=== PATIENT | female | born 1940 | race Caucasian/White ===

== ENCOUNTER 2016-06-16 18:58 | Inpatient (IN) | payer MEDICARE, MEDICAID ==
[2016-06-16 20:20] LABS: % EOSINOPHILS 2.9 % (0.0-5.0)
[2016-06-16 20:23] LABS: ALB/GLOB RATIO 1.1 (1.0-1.8); ALKALINE PHOSPHATASE 111 U/L (34-104); ANION GAP 6.1 (7.0-16.0); BILIRUBIN,TOTAL 0.4 mg/dL (0.3-1.0); BUN - UREA NITROGEN 24 mg/dL (7-25); CALCIUM SERUM 9.6 mg/dL (8.6-10.3); CHLORIDE 100 mEq/L (98-107); CHOLESTEROL 147 mg/dL (<200); CREATININE - SERUM 0.5 mg/dL (0.6-1.2); GLUCOSE 108 mg/dL (70-105); POTASSIUM SERUM 4.1 mEq/L (3.5-5.1); SGOT 20 U/L (13-39); SGPT/ALT 8 U/L (7-52); SODIUM SERUM 130 mEq/L (136-145); TRIGLYCERIDES 91 mg/dL (<150)
[2016-06-16 20:32] LABS: % BASOPHILS 0.4 % (0.0-2.0); % LYMPHOCYTES 21.1 % (20.0-50.0); % MONOCYTES 7.2 % (2.0-10.0); % NEUTROPHILS 68.4 % (40.0-80.0); HEMOGLOBIN 11.7 gm/dL (11.7-16.1); MEAN CELL VOLUME 80.1 fl (81-100); MEAN CORPUSCULAR HEMOGLOBIN 26.7 pg (27.0-31.0); MEAN CORPUSCULAR HGB CONC 33.4 pg (28.0-36.0); MEAN PLATELET VOLUME 10.2 fl; NEUTROPHILE ABSOLUTE 4.3 Th/cmm (1.8-8.0); RED BLOOD COUNT 4.37 Mil/cmm (3.80-5.20); RED CELL DISTRIBUTION WIDTH 13.5 % (11.5-20.0); WHITE BLOOD COUNT 6.4 Th/cmm (4.8-10.8)
[2016-06-16 20:39] LABS: INR 1.05 (0.5-1.4); PROTHROMBIN TIME (TEST) 10.4 SECONDS (9.5-11.5)
[2016-06-16 20:39] LABS: PLATELET COUNT 177 Th/cmm (150-400)
--- NOTE | 2016-06-16 22:18 | ED Physician Chart ---
Chief Complaint/HPI - Patient Information Date Seen:: 06/16/16 Time Seen:: 20:59 Chief Complaint:: AGITATION History of Present Illness:: THIS IS A 75 YO PSYCH FEMALE PATIENT SENT FROM THE DETENTION FOR EVALUATION AND TREATMENT OF HER PSYCHOSIS. SHE HAS REFUSED TO TAKE HER MEDICATIONS AND SCREENING CONSTANTLY. THE PATIENT HAS BEEN UNCOOPERATIVE WITH THE STAFF. Allergies:: Allergies Allergy/AdvReac Type Severity Reaction Status Date / Time No Known Allergies Allergy Verified 06/16/16 20:02 Vitals:: Vital Signs - 8 hr 06/16/16 20:11 Temp 97.3 F HR 112 RR 20 BP 158/98 O2 Sat % 96 Historian:: EMS, Medical Records Review:: Nurse's Note Reviewed Review of Systems - Review of Systems General/Constitutional: No fever, No chills, No weight loss, No weakness, No diaphoresis, No edema, No loss of appetite, Other (THIS PATIENT IS UNCOOPERATIVE AND NOT ABLE TO GIVE THE REVIEW OF SYSTEMS.) Skin: No skin lesions, No rash, No bruising Head: No headache, No light-headedness Eyes: No loss of vision, No pain, No diplopia ENT: No earache, No nasal drainage, No sore throat, No tinnitus Neck: No neck pain, No swelling, No thyromegaly, No stiffness, No mass noted Cardio Vascular: No chest pain, No palpitations, No PND, No orthopnea, No edema Pulmonary: No SOB, No cough, No sputum, No wheezing GI: No nausea, No vomiting, No diarrhea, No pain, No melena, No hematochezia, No constipation, No hematemesis G/U: No dysuria, No frequency, No hematuria Musculoskeletal: No bone or joint pain, No back pain, No muscle pain Endocrine: No polyuria, No polydipsia Psychiatric: No prior psych history, No depression, No anxiety, No suicidal ideation Hematopoietic: No bruising, No lymphadenopathy Allergic/Immuno: No urticaria, No angioedema Neurological: No syncope, No focal symptoms, No weakness, No paresthesia, No headache, No seizure, No dizziness, No confusion, No vertigo Past Medical History - Past Medical History Obtainable: Yes Past Medical History: Asthma/COPD, Thyroid disorder, Dementia Family History: None Social History: Non Smoker, No Alcohol, No Drug Use Surgical History: None Psychiatricy History: Schizophrenia, Dementia Medication: Reviewed Family Medical History - Family Member Mother History Unknown: Yes Physical Exam - Physical Examination General/Constitutional: Awake, Well-developed, well-nourished, Alert, No distress, GCS 15, Non-toxic appearing, Ambulatory Other Gen/Cons comments:: SCREAMING AND FIGHTING TREATMENT Head: Atraumatic Eyes: Lids, conjuctiva normal, PERRL, EOMI Skin: Nl inspection, No rash, No skin lesions, No ecchymosis, Well hydrated, No lymphadenopathy ENMT: External ears, nose nl, Nasal exam nl, Lips, teeth, gums nl Neck: Nontender, Full ROM w/o pain, No JVD, No nuchal rigidity, No bruit, No mass, No stridor Respiratory: Nl effort/Exclusion, Clear to Auscultation, No Wheeze/Rhonchi/Rales Cardio Vascular: RRR, No murmur, gallop, rubs, NL S1 S2 GI: No tenderness/rebounding/guarding, No organomegaly, No hernia, Normal BS's, Nondistended, No mass/bruits, No McBurney tenderness : No CVA tenderness Extremities: No tenderness or effusion, Full ROM, normal strength in all extremities, No edema, Normal digits & nails Neuro/Psych: Alert/oriented, DTR's symmetric, Normal sensory exam, Normal motor strength, Normal gait, No focal deficits Other Neuro/Psych comments:: THE PATIENT IS NOT COOPERATIVE AND ORIENTATION CANNOT DONE AT THIS TIME. Misc: normal gait, Normal back, No paraspinal tenderness Labs/Radiology/EKG Results - Lab Results Results: Laboratory Tests 06/16/16 06/16/16 06/16/16 19:42 19:42 19:42 WBC RBC Hgb Hct MCV MCH MCHC Differential RDW Plt Count MPV Neutrophils % Lymphocytes % Monocytes % Eosinophils % Basophils % PT 10.4 INR 1.05 Sodium 130 L Potassium 4.1 Chloride 100 Carbon Dioxide 28.0 Anion Gap 6.1 L BUN 24 Creatinine 0.5 L Est GFR ( Amer) TNP Est GFR (Non-Af Amer) TNP BUN/Creatinine Ratio 48.0 Glucose 108 H Calcium 9.6 Total Bilirubin 0.4 AST 20 ALT 8 Alkaline Phosphatase 111 H Troponin I Total Protein 7.2 Albumin 3.7 Globulin 3.5 Albumin/Globulin Ratio 1.1 Triglycerides 91 Cholesterol 147 LDL Cholesterol Direct 66 L HDL Cholesterol 66 TSH 06/16/16 06/16/16 06/16/16 19:42 19:42 20:29 WBC 6.4 RBC 4.37 Hgb 11.7 Hct 35.0 D MCV 80.1 L MCH 26.7 L MCHC Differential 33.4 RDW 13.5 Plt Count 177 D MPV 10.2 Neutrophils % 68.4 Lymphocytes % 21.1 Monocytes % 7.2 Eosinophils % 2.9 Basophils % 0.4 PT INR Sodium Potassium Chloride Carbon Dioxide Anion Gap BUN Creatinine Est GFR ( Amer) Est GFR (Non-Af Amer) BUN/Creatinine Ratio Glucose Calcium Total Bilirubin AST ALT Alkaline Phosphatase Troponin I < 0.01 L Total Protein Albumin Globulin Albumin/Globulin Ratio Triglycerides Cholesterol LDL Cholesterol Direct HDL Cholesterol TSH 4.43 - Radiology Results Results: CHEST X-RAY = NAD SEEN ED Septic Shock - . Is Septic Shock (SBP<90, OR Lactate>4 mmol\L) present?: No - <6hrs of presentation: Vital Signs: Vital Signs - 8 hr 06/16/16 20:11 Temp 97.3 F HR 112 RR 20 BP 158/98 O2 Sat % 96 Reassessment (Disposition) - Reassessment Reassessment Condition:: Unchanged - Diagnosis Diagnosis:: PSYCHOSIS DEPRESSION - Patient Disposition Discharge/Transfer:: Acute Care w/in this hosp Admitting Medical Physician:: Johan Gaytan Admitting Psych Physician:: Christina Monroe Condition at Disposition:: Unchanged
[2016-06-16] MEDS ORDERED: Maalox 30 mL Cup PO PRN (23:40)
[2016-06-16] MEDS ORDERED: Lactulose 10 Gm/15 mL 30mL UDC PO PRN (23:40)
[2016-06-16] MEDS ORDERED: Magnesium Hydroxide (MOM) 30 mL UDC PO PRN (23:40)
[2016-06-16 23:41] VITALS: BP 112/70
[2016-06-17] MEDS: Levothyroxine 0.1 Mg Tab PO SCH (05:54)
[2016-06-17] MEDS ORDERED: Levothyroxine 0.1 Mg Tab PO SCH ×2 (06:30→09:00)
[2016-06-17] MEDS: Multivitamin Tab PO SCH ×2 (09:25→17:32)
[2016-06-17] MEDS: Calcium Carb/Vit D 500 mg/200 U Tab PO SCH ×3 (09:27→21:09)
--- NOTE | 2016-06-17 10:38 | Diagnostic Imaging Report ---
Portable chest x-ray History: Shortness of breath Allowing for portable technique the heart size is normal. Atherosclerotic calcification seen within the aortic arch. No focal pulmonary parenchymal processes. No hilar or mediastinal abnormalities. Impression: No acute abnormalities.
--- NOTE | 2016-06-17 23:44 | History & Physical ---
CHIEF COMPLAINT: The patient was transferred from [facility] for psych eval and treatment. HISTORY OF PRESENT ILLNESS: This is a 75-year-old female who has a known history of schizophrenia. The patient has been under care of her psychiatrist Dr. Monroe and the patient has been paranoid from time to time. She is getting very agitated and screaming and refusing care, and her symptoms have been progressively getting worse for the last few days, therefore she was transferred to [facility] ER for medical clearance and [facility] admission. When the patient was in the Emergency Room, she had chest x-ray and laboratory done and she was medically cleared and she was admitted to [facility] for further evaluation treatment. At the time of interview, the patient is still psychotic and not able to answering questions or following command properly. She is still refusing her medication and she does not appreciate to be in any acute distress. She is sitting on the wheelchair. PAST MEDICAL HISTORY: 1. Asthma. 2. Left leg skin ulcer disease, which developed after she had injury with large hematoma. 3. Hypothyroidism. 4. Degenerative joint disease involving bilateral knees, wheelchair bound condition. PAST SURGICAL HISTORY: 1. ORIF hip fracture. 2. Left leg ulcer wound debridement and skin graft. SOCIAL HISTORY: The patient is a smoker. She still smokes a few cigarettes a day at [facility]. She does not drink. She is wheelchair bound because of her osteoarthritis. ALLERGIES: No known allergies to medication. MEDICATION: Prior to admission, the patient was on following medications; 1. Tylenol 650 p.r.n. 2. Dulcolax p.r.n. 3. Ibuprofen p.r.n. 4. Lactulose p.r.n. 5. Senna p.r.n. 6. MS Contin 50 mg two tablets every 6 hours p.r.n. 7. Milk of magnesia at bedtime p.r.n. 8. Colace 250 mg twice a day. 9. Lasix 40 mg once a day. 10. Synthroid 0.1 mg once a day. 11. Aricept 10 mg once a day. 12. Haldol 25 mg every 2 weeks intramuscular injection. 13. She was on Remeron 50 mg once a day. FAMILY HISTORY: Noncontributory. REVIEW OF SYSTEMS: Not obtainable. The patient is agitated, not cooperative. Followed by physical therapy. PHYSICAL EXAMINATION: VITAL SIGNS: Blood pressure 112/70, pulse 88, respiratory rate of 14. HEENT: Pupils are equal. No scleral icterus. No ___ lesions. NECK: Supple. No JVD. CHEST: Decreased breathing sounds. No wheezing, no crackles. HEART: Regular rhythm. No heart murmur heard. ABDOMEN: Soft. No tenderness. Bowel sounds active. EXTREMITIES: There is 1+ edema with left leg large ulcer measured about 10 x 5 cm, stage 2, and ulcer base is clean with granulating tissue. PSYCHIATRIC: Uncooperative. She is sitting on wheelchair. Chest x-ray reveals clear lung mcelroy. LABORATORY DATA: CBC: WBC 6.4, hemoglobin 11.7, hematocrit 35, platelets 177,000, neutrophil 68.4, lympho 21.1, mono 7.2, eosinophil 2.9, baso 0.4. Chemistry panel: Sodium 130, potassium 4.1, chloride 100, bicarb 28, BUN 24, creatinine 0.5, glucose 108, alkaline phosphatase 101, troponin less than 0.01. TSH 4.43. RPR nonreactive. ASSESSMENT: 1. Schizophrenia exacerbation with psychosis, refusing to take medication and refusing care. 2. History of asthma, stable. 3. Left leg ulcer, improving. 4. Hypothyroidism. 5. Degenerative joint disease. Wheelchair bound condition. PLAN: 1. The patient was admitted to Geropsych Unit. 2. The patient was seen by psychiatrist Dr. Monroe for psychosis management. 3. We will continue all her preadmission medications. 4. Further evaluation and treatment will be based on psychiatrist's recommendation and the patient is medically stable. JOB# [id number]
--- NOTE | 2016-06-18 02:57 | Psychosocial Evaluation ---
CHIEF COMPLAINT: "Leave me alone". HISTORY OF PRESENT ILLNESS: The patient is a 75-year-old female with a history of schizophrenia verus schizoaffective disorder, known to myself from treatment over the past several years, slightly decompensated, started to become more paranoid, apparently has been refusing her medications and her condition starts to get worse. The patient started to have episodes of yelling and becoming more argumentative at [facility]. Her appetite has decreased. The patient admits to being depressed at times. PAST PSYCHIATRIC HISTORY: Multiple hospitalizations, chronic history of mental illness. PAST MEDICAL HISTORY: As per H and P. PSYCHOSOCIAL HISTORY: The patient resides at [facility] and she requires complete care. MENTAL STATUS EXAMINATION: The patient is somewhat uncooperative, sitting in a wheelchair, was talking to herself. She has obvious psychomotor restlessness. The patient has been having episodes of yelling. The patient appears to be paranoid and guarded. The patient is oriented to person, knows she is in the hospital and did not know the name of the hospital. She was having difficulty knowing her age. The patient is somewhat uncooperative with the rest of the memory testing. THE PATIENT'S STRENGTH: The patient is passively accepting treatment. THE PATIENT'S WEAKNESS: Lack of insight. ASSESSMENT: Schizoaffective disorder with psychotic phase and dementia, Alzheimer type. PAST MEDICAL HISTORY: Stress is severe. We will admit the patient for hospitalization. We will start individual and group therapy, assess physopharmacological interventions. ESTIMATED LENGTH OF STAY: 7 days. CRITERIA FOR DISCHARGE: Improved condition. No psychosis, no agitation, better sleep and appetite and safe disposition outpatient treatment plan. [facility]# [id number]
[2016-06-18] MEDS: Levothyroxine 0.1 Mg Tab PO SCH (06:55)
[2016-06-18] MEDS: Calcium Carb/Vit D 500 mg/200 U Tab PO SCH ×3 (09:13→21:16)
[2016-06-18] MEDS: Multivitamin Tab PO SCH ×2 (09:14→17:18)
[2016-06-18] MEDS ORDERED: Albuterol Nebulizer 2.5mg/3mL HHN PRN (15:57)
[2016-06-18] MEDS ORDERED: Promethazine DM 6.25/15mg-5mL 5 ML SYR PO PRN (15:58)
--- NOTE | 2016-06-19 04:09 | Progress Notes ---
SUBJECTIVE: The patient was seen, discussed with staff. Remains anxious, guarded, still paranoid, easily agitated, episodes of rambling, still talking to herself. The patient has been refusing medications mostly at times. Her insight is still poor, judgment remains impaired. ASSESSMENT: The patient still in psychotic phase, still highly disorganized. PLAN: We will continue medication management. Continue supportive measure, continue to monitor closely. [facility]# [id number]
[2016-06-19] MEDS: Levothyroxine 0.1 Mg Tab PO SCH (06:23)
[2016-06-19] MEDS: Calcium Carb/Vit D 500 mg/200 U Tab PO SCH ×3 (09:36→20:26)
[2016-06-19] MEDS: Multivitamin Tab PO SCH ×2 (09:38→16:26)
--- NOTE | 2016-06-20 01:31 | Progress Notes ---
SUBJECTIVE: I met this patient, discussed with staff. Still angry, paranoid, episodes of yelling. Limited insight and poor judgment. The patient still with episodes of talking to herself. The patient compliance with medication has been an issue as she is due for Haldol Decanoate today. ASSESSMENT: The patient is still in psychotic phase. PLAN: We will continue stabilization. Continue supportive measures, continue to monitor closely. The patient hospitalization is triggered by increased agitation, which is still a problem. JOB# [id number]
[2016-06-20] MEDS: Levothyroxine 0.1 Mg Tab PO SCH (06:36)
[2016-06-20] MEDS: Multivitamin Tab PO SCH ×2 (11:16→17:58)
[2016-06-20] MEDS: Calcium Carb/Vit D 500 mg/200 U Tab PO SCH ×4 (11:16→21:24)
--- NOTE | 2016-06-21 01:36 | Progress Notes ---
SUBJECTIVE: The patient was seen, discussed with staff. Still guarded, paranoid, still irritable, internally preoccupied, episodes of yelling, continues to have episodes of refusing medications off and on. The patient's insight remains poor and judgment remains impaired. ASSESSMENT: Schizophrenia, paranoid type versus schizoaffective disorder and also dementia, Alzheimer's type. PLAN: We will continue hospitalization. Continue to monitor closely. Continue supportive measures. [facility]# [id number]
[2016-06-21] MEDS: Levothyroxine 0.1 Mg Tab PO SCH (06:33)
[2016-06-21] MEDS: Calcium Carb/Vit D 500 mg/200 U Tab PO SCH ×3 (09:50→21:00)
[2016-06-21] MEDS: Multivitamin Tab PO SCH ×2 (09:51→16:37)
[2016-06-21] MEDS ORDERED: Haloperidol Lactate 5 mg/mL 1mL Vial ONE (11:34)
[2016-06-21] MEDS ORDERED: Haloperidol Lactate 5 mg/mL 1mL Vial IM ONE (11:37)
--- NOTE | 2016-06-22 04:13 | Progress Notes ---
SUBJECTIVE: The patient was seen, discussed with staff. Still anxious, guarded, still irritable, having episodes of yelling earlier today she required being given emergency medications because she was yelling at staff, trying to push staff. The patient after she received her medication and she appears to be calmer and less anxious and less paranoid. ASSESSMENT: The patient still in psychotic phase. PLAN: Continue hospitalization. Continue stabilization. Encourage patient to comply with treatment. Continue medication management. JOB# [id number]
[2016-06-22] MEDS: Levothyroxine 0.1 Mg Tab PO SCH (06:05)
[2016-06-22] MEDS: Multivitamin Tab PO SCH ×2 (09:12→16:50)
[2016-06-22] MEDS: Calcium Carb/Vit D 500 mg/200 U Tab PO SCH ×3 (09:12→20:26)
[2016-06-22] MEDS ORDERED: Haloperidol Lactate 5 mg/mL 1mL Vial ONE (18:32)
[2016-06-22] MEDS ORDERED: Haloperidol Lactate 5 mg/mL 1mL Vial IM ONE (18:32)
--- NOTE | 2016-06-22 21:27 | Progress Notes ---
SUBJECTIVE: The patient was seen, discussed with staff, and chart reviewed. Still paranoid and irritable. Still guarded, suspicious, an internally preoccupied. Some episodes of yelling. On the other hand, compliance thought to improve gradually. ASSESSMENT: Schizophrenia, paranoid type, still acutely decompensated state. Also, the patient with dementia problems. We will continue supportive measures. JOB# [id number]
[2016-06-23] MEDS: Levothyroxine 0.1 Mg Tab PO SCH (05:48)
[2016-06-23] MEDS: Calcium Carb/Vit D 500 mg/200 U Tab PO SCH ×3 (10:14→20:26)
[2016-06-23] MEDS: Multivitamin Tab PO SCH ×2 (10:14→18:33)
[2016-06-23] MEDS ORDERED: Haloperidol Lactate 5 mg/mL 1mL Vial IM STA (13:23)
[2016-06-24] MEDS: Levothyroxine 0.1 Mg Tab PO SCH (06:24)
[2016-06-24] MEDS: Calcium Carb/Vit D 500 mg/200 U Tab PO SCH ×3 (08:36→21:47)
[2016-06-24] MEDS: Multivitamin Tab PO SCH ×2 (08:37→16:52)
[2016-06-24] MEDS ORDERED: Haloperidol Lactate 5 mg/mL 1mL Vial ONE (08:59)
[2016-06-24] MEDS ORDERED: Haloperidol Lactate 5 mg/mL 1mL Vial IM ONE (09:00)
--- NOTE | 2016-06-24 12:03 | Progress Notes ---
SUBJECTIVE: The patient was seen, discussed with staff. Remains angry, irritable, still talking to herself. Continues to be forgetful. The patient's insight is limited, judgment remains impaired. ASSESSMENT: The patient is still in psychotic phase. PLAN: Continue hospitalization. Continue stabilization. Continue to monitor closely. JOB# [id number]
--- NOTE | 2016-06-24 22:43 | Progress Notes ---
SUBJECTIVE: I met this patient. Remains guarded, still irritable, still argumentative, ____, insight is poor and judgment remains impaired. The patient's compliance with medication is slowly improving. ASSESSMENT: Schizoaffective disorder and dementia, Alzheimer's type. PLAN: We will continue hospitalization. Encourage the patient to comply with treatment and medication management. JOB# [id number]
[2016-06-25] MEDS: Levothyroxine 0.1 Mg Tab PO SCH (06:13)
[2016-06-25] MEDS: Calcium Carb/Vit D 500 mg/200 U Tab PO SCH ×3 (08:49→21:01)
[2016-06-25] MEDS: Multivitamin Tab PO SCH ×2 (08:49→16:05)
--- NOTE | 2016-06-26 04:28 | Progress Notes ---
SUBJECTIVE: The patient was seen today, still disorganized, angry, still with yelling episodes, at times refusing medications. The patient keeps asking for more cigarettes. The patient is accusing staff. They are trying to send her to help. The patient's paranoia is still a problem. ASSESSMENT: Schizophrenia, paranoid type, acute decompensated state and dementia, Alzheimer's type. PLAN: We will continue stabilization. Use Haldol Decanoate 25 mg IM again today. The patient received a dose few days ago and it does not appear to be sufficient. The patient has no sedation. We will monitor closely for any EPS also. JOB# [id number]
[2016-06-26] MEDS: Levothyroxine 0.1 Mg Tab PO SCH (06:05)
[2016-06-26] MEDS: Calcium Carb/Vit D 500 mg/200 U Tab PO SCH ×3 (16:24→20:51)
[2016-06-26] MEDS: Multivitamin Tab PO SCH ×2 (16:25→17:17)
--- NOTE | 2016-06-27 01:30 | Progress Notes ---
SUBJECTIVE: The patient was seen today, remains paranoid, suspicious, still refusing care, episodes where she was talking to herself, some yelling. Her insight is poor, judgment remains impaired. ASSESSMENT: Schizoaffective disorder, still in psychotic phase and dementia, Alzheimer's type. PLAN: Continue medication management. Continue stabilization. The patient received Haldol Decanoate total of 50 mg IM in the past week ____ more time for clinical improvement. Meanwhile encourage the patient to comply with treatment. [facility]# [id number]
[2016-06-27] MEDS: Levothyroxine 0.1 Mg Tab PO SCH (06:10)
[2016-06-27] MEDS: Calcium Carb/Vit D 500 mg/200 U Tab PO SCH ×3 (09:45→21:06)
[2016-06-27] MEDS: Multivitamin Tab PO SCH ×2 (09:45→17:01)
--- NOTE | 2016-06-28 00:12 | Progress Notes ---
SUBJECTIVE: The patient was seen today, remains paranoid, anxious, still irritable, still episodes of rambling, is ____ anxious, difficult to comprehend when she talks. The patient, however, has better appetite and sleep has been fair. The patient is still at times reluctant to take medications. I spoke with her granddaughter yesterday, discussed her condition in detail. We will monitor closely. JOB# [id number]
[2016-06-28] MEDS: Levothyroxine 0.1 Mg Tab PO SCH (06:09)
[2016-06-28] MEDS: Calcium Carb/Vit D 500 mg/200 U Tab PO SCH ×3 (08:57→21:04)
[2016-06-28] MEDS: Multivitamin Tab PO SCH ×2 (08:57→16:29)
--- NOTE | 2016-06-29 05:10 | Progress Notes ---
SUBJECTIVE: The patient was seen, discussed with staff, still paranoid, irritable, refusing care, refusing medications off and on. The patient's insight is still poor. Judgment remains impaired. ASSESSMENT: The patient is still in psychotic phase. Encourage the patient to comply with treatment. Add Zyprexa 5 mg p.o. at bedtime. The patient did well when she took this medication in combination with Haldol despite being on 2 different antipsychotics. JOB# [id number]
[2016-06-29] MEDS: Levothyroxine 0.1 Mg Tab PO SCH (07:22)
[2016-06-29] MEDS: Calcium Carb/Vit D 500 mg/200 U Tab PO SCH ×2 (08:11→14:06)
[2016-06-29] MEDS: Multivitamin Tab PO SCH ×2 (08:11→16:15)
[2016-06-29] MEDS ORDERED: Haloperidol Lactate 5 mg/mL 1mL Vial IM ONE (16:27)
[2016-06-29] MEDS ORDERED: Haloperidol Lactate 5 mg/mL 1mL Vial ONE (16:28)
--- NOTE | 2016-06-29 22:33 | Discharge Summary ---
REASON FOR HOSPITALIZATION: Schizoaffective disorder, psychotic phase; dementia, Alzheimer's type. HISTORY OF PRESENT ILLNESS: The patient is a 75-year-old female who was sent from a [facility] facility for increased agitation, paranoia, refusing to eat, refusing to take medications, thought to lose weight. The patient was evaluated and was admitted. HOSPITALIZATION COURSE: The patient continued to be paranoid, having episodes of yelling. The patient did not want to take pills, but she agreed to take long-acting injectable Haldol, which she has taken in the past. The patient's appetite slightly improved. The patient received Haldol Decanoate and she did not have any side effects. The patient on 06/29/2014 was discharged back to her facility. The patient was eating well, sleeping well, was compliant with Haldol Decanoate only as a form of antipsychotic medication. She was showing some insight, acknowledging presence of schizophrenia, said she has been treated for many years by Dr. Frazier, who she saw in the past. FINAL DIAGNOSES: Schizoaffective disorder, dementia, Alzheimer's type. MEDICAL HISTORY: Asthma, left leg skin ulcer disease, hypothyroidism, degenerative joint disease. CONDITION ON DISCHARGE: Improved. No agitation. Fair sleep and appetite. The patient is still slightly paranoid and continues to have a memory problem consistent with her dementia. EXPECTED COURSE OF RECOVERY: The patient with chronic condition. JOB# [id number]
== END 2016-06-29 18:25 | DRG 57 ==
LOC: ER 18:58 → GERO 22:35
DX: G30.9 Alzheimer's disease, unspecified (principal); L97.921 Non-pressure chronic ulcer of unspecified part of left lower leg limited to breakdown of skin; F02.80 Dementia in other diseases classified elsewhere, unspecified severity, without behavioral disturbance, psychotic disturbance, mood disturbance, and anxiety; F25.9 Schizoaffective disorder, unspecified; F29 Unspecified psychosis not due to a substance or known physiological condition; J45.909 Unspecified asthma, uncomplicated; J44.9 Chronic obstructive pulmonary disease, unspecified; F32.9 Major depressive disorder, single episode, unspecified; I10 Essential (primary) hypertension; E03.9 Hypothyroidism, unspecified; M17.0 Bilateral primary osteoarthritis of knee; F17.210 Nicotine dependence, cigarettes, uncomplicated; Z99.3 Dependence on wheelchair; Z98.890 Other specified postprocedural states; Z91.19 Patient's noncompliance with other medical treatment and regimen
CPT/HCPCS: 36415-UA; 71010-TC; 80053-TC; 80061-TC; 84443-TC; 84484-TC; 85025-TC; 85610-TC; 86592-TC; 87070-90; 87075-90; 90899; 94760; A4216; G0410; J1200; J1630; J1631; J2060; J7613; Z7610

== ENCOUNTER 2018-09-24 17:12 | Inpatient (IN) | payer MEDICARE, BC ==
--- NOTE | 2018-09-24 17:20 | ED Physician Chart ---
ED Chief Complaint/HPI - Patient Information Date Seen:: 09/24/18 Time Seen:: 17:10 Chief Complaint:: Agitation History of Present Illness:: onset x 3 days of agitation and aggressive behavior; no report of trauma, H/As, neck pain, SIs, C/P, SOB, Abd. Pain, or urinary s/s Allergies:: Allergies Allergy/AdvReac Type Severity Reaction Status Date / Time No Known Allergies Allergy Verified 06/16/16 20:02 Historian:: Patient, EMS Review:: Nurse's Note Reviewed, Old Chart Reviewed, EMS run form Reviewed ED Review of Systems - Review of Systems General/Constitutional: No fever, No chills, No weight loss, Weakness, No diaphoresis, No edema, No loss of appetite Skin: Skin lesions, Rash, No bruising Head: No headache, No light-headedness Eyes: No loss of vision, No pain, No diplopia ENT: No earache, No nasal drainage, No sore throat, No tinnitus Neck: No neck pain, No swelling, No thyromegaly, No stiffness, No mass noted Cardio Vascular: No chest pain, No palpitations, No PND, No orthopnea, No edema Pulmonary: No SOB, No cough, No sputum, No wheezing GI: No nausea, No vomiting, No diarrhea, No pain, No melena, No hematochezia, No constipation, No hematemesis G/U: No dysuria, No frequency, No hematuria, No nacturia Securities Clerk: No vaginal discharge, No abnormal vaginal bleed, No contraction Musculoskeletal: No bone or joint pain, No back pain, No muscle pain Endocrine: No polyuria, No polydipsia Psychiatric: Prior psych history, Depression, Anxiety, No suicidal ideation, No homicidal ideation, No auditory hallucination, No visual hallucination Hematopoietic: No bruising, No lymphadenopathy Allergic/Immuno: No urticaria, No angioedema Neurological: No syncope, No focal symptoms, Weakness, No paresthesia, No headache, No seizure, No dizziness, Confusion, No vertigo ED Past Medical History - Past Medical History Obtainable: Yes Past Medical History: HTN, Asthma/COPD, DVT/PE, Dyslipidemia, Thyroid disorder, Arthritis, Dementia Family History: HTN Social History: Non Smoker, No Alcohol, No Drug Use, , Care Facility Surgical History: None Psychiatricy History: Depression, Schizophrenia, Bipolar, Dementia Medication: Reviewed Family Medical History - Family Member Mother History Unknown: Yes Ethnicity: Unknown Living Status: Unknown Hx Family Cancer: (Unknown) Hx Family Coronary Artery Disease: (Unknown) Hx Family Congestive Heart Failure: (Unknown) Hx Family Hypertension: (Unknown) Hx Family Stroke: (Unknown) Hx Family Diabetes: (Unknown) Hx Family Seizures: (Unknown) Hx Family Dementia: (Unknown) Hx Family AIDS: (Unknown) Hx Family HIV: No Hx Family COPD: (Unknown) Hx Family Hepatitis: (Unknown) Hx Family Psychiatric Problems: (Unknown) Hx Family Tuberculosis: (Unknown) ED Physical Exam - Physical Examination General/Constitutional: Awake, Well-developed, well-nourished, Alert, No distress, GCS 15, Non-toxic appearing, Ambulatory Head: Atraumatic Eyes: Lids, conjuctiva normal, PERRL, EOMI Skin: Nl inspection, No rash, No skin lesions, No ecchymosis, Well hydrated, No lymphadenopathy Other Skin comments:: + RLE Cellulitis ENMT: External ears, nose nl, TM canals nl, Nasal exam nl, Lips, teeth, gums nl , Oropharynx nl, Tonsils nl Neck: Nontender, Full ROM w/o pain, No JVD, No nuchal rigidity, No bruit, No mass, No stridor Respiratory: Nl effort/Exclusion, Clear to Auscultation, No Wheeze/Rhonchi/Rales Cardio Vascular: RRR, No murmur, gallop, rubs, NL S1 S2, Carotid/Femoral/Distal pulses equal bilaterally GI: No tenderness/rebounding/guarding, No organomegaly, No hernia, Normal BS's, Nondistended, No mass/bruits, No McBurney tenderness : No CVA tenderness Extremities: No tenderness or effusion, Full ROM, normal strength in all extremities, No edema, Normal digits & nails Neuro/Psych: Alert/oriented, DTR's symmetric, Normal sensory exam, Normal motor strength, Judgement/insight normal, Mood normal, Normal gait, No focal deficits Other Neuro/Psych comments:: + psychomotor Agitation; no SIs; Mood/Affect: Labile Misc: Normal back, No paraspinal tenderness ED Labs/Radiology/EKG Results - Lab Results Comments:: Reviewed - EKG Interpretations EKG Time:: 17:37 Rate & Rhythm: 72; NSR Comments:: non-specific st-t changes ED Septic Shock - . Is Septic Shock (SBP<90, OR Lactate>4 mmol\L) present?: No ED Reassessment (Disposition) - Reassessment Reassessment Condition:: Improved - Diagnosis Diagnosis:: Cellulitis; Agiation; Medical Clearance
[2018-09-24] MEDS ORDERED: Haloperidol Lactate 5 mg/mL 1mL Vial IM STA (18:39)
[2018-09-24] MEDS ORDERED: Haloperidol Lactate 5 mg/mL 1mL Vial ONE (18:52)
[2018-09-24 19:50] LABS: % BASOPHILS 0.9 % (0.0-2.0); % EOSINOPHILS 1.8 % (0.0-5.0); % LYMPHOCYTES 20.2 % (20.0-50.0); % MONOCYTES 10.1 % (2.0-10.0); BASOPHILE ABSOLUTE 0.1 Th/cumm (0-0.2); EOSINOPHILE ABSOLUTE 0.1 Th/cmm (0.1-0.4); HEMATOCRIT 41.7 % (41.0-60); HEMOGLOBIN 13.5 gm/dL (12-16); LYMPHOCYTE ABSOLUTE 1.1 Th/cmm (1.5-3.0); MEAN CELL VOLUME 89.9 fl (81-100); MEAN CORPUSCULAR HEMOGLOBIN 29.1 pg (27.0-31.0); MEAN CORPUSCULAR HGB CONC 32.4 pg (28.0-36.0); MEAN PLATELET VOLUME 12.3 fl; MONOCYTE ABSOLUTE 0.6 Th/cmm (0.3-1.0); NEUTROPHILE ABSOLUTE 3.7 Th/cmm (1.8-8.0); PLATELET COUNT 111 Th/cmm (150-400); RED BLOOD COUNT 4.63 Mil/cmm (3.80-5.20); RED CELL DISTRIBUTION WIDTH 12.9 % (11.5-20.0); WHITE BLOOD COUNT 5.6 Th/cmm (4.8-10.8)
[2018-09-24 20:10] LABS: ALB/GLOB RATIO 1.6 (1.0-1.8); ALBUMIN 3.5 gm/dL (3.7-5.3); ALKALINE PHOSPHATASE 62 U/L (34-104); ANION GAP 9.7 (7.0-16.0); BILIRUBIN,TOTAL 0.4 mg/dL (0.3-1.0); BUN - UREA NITROGEN 15 mg/dL (7-25); CALCIUM SERUM 8.8 mg/dL (8.6-10.3); CARBON DIOXIDE 27.9 mEq/L (21.0-31.0); CHLORIDE 106 mEq/L (98-107); CHOLESTEROL 116 mg/dL (<200); CREATININE - SERUM 0.7 mg/dL (0.6-1.2); GLUCOSE 88 mg/dL (70-105); HDL -HIGH DENSITY LIPOPROTEIN 49 mg/dL (23-92); POTASSIUM SERUM 3.6 mEq/L (3.5-5.1); SGOT 13 U/L (13-39); SGPT/ALT 6 U/L (7-52); SODIUM SERUM 140 mEq/L (136-145); TOTAL PROTEIN,SERUM 5.7 gm/dL (6.0-8.3); TRIGLYCERIDES 46 mg/dL (<150)
[2018-09-24 20:11] LABS: ACETAMINOPHEN < 10.0 ug/mL (10.0-30.0); SALICYLATES (ASPIRIN) < 25.0 mg/L (30.0-100.0)
[2018-09-24 22:38] VITALS: BP 116/69
[2018-09-24] MEDS ORDERED: Magnesium Hydroxide (MOM) 30 mL UDC PO PRN (22:40)
[2018-09-25 02:12] LABS: CHOLESTEROL 115 mg/dL (<200); HDL -HIGH DENSITY LIPOPROTEIN 50 mg/dL (23-92); TRIGLYCERIDES 53 mg/dL (<150)
[2018-09-25] MEDS: Levothyroxine 0.125 Mg Tab PO SCH (06:50)
--- NOTE | 2018-09-25 08:39 | History and Physical ---
History of Present Illness - HPI Chief Complaint: psychosis HPI: 77y/o female who presents to [facility] ER for change in behavior. increased aggitation. Patient has a previous medical history of HTN, Asthma, COPD, DVT, PE, Dyslipidemia, Dementia, Thyroid Disorder, OA. While in the ER patient had routine labwork which revealed the following, WBC 5.6 H/H 13.5/41.7 platelets 111K Na 140 K 3.6 Bun/Cr 15/0.7 Glu 88 Trop I 0.01 TSH 2.85 Total chol 115 LDL 62 HDL 50 Trig 53 Patient was subsequently admitted to [facility] for further evaluation and treatment. Vital Signs: Last Vital Signs Temp 97.6 F 09/24/18 22:34 Pulse 69 09/24/18 22:34 Resp 19 09/24/18 22:34 BP 116/69 09/24/18 22:37 Pulse Ox 95 09/24/18 22:34 Past Medical History Cardiovascular: Report: HTN Pulmonary: Report: Asthma, COPD [employer]: Report: Dementia GI: Report: No Pertinent Hx Psych: Report: Psychosis Musculoskeletal: Report: No Pertinent Hx, Osteoarthritis Rheumatologic: Report: No pertinent Hx Infectious Disease: Report: No Pertinent Hx Renal/: Report: No Pertinent Hx Endocrine: Report: Hypothyroidism Dermatology: Report: No Pertinent Hx - Past Surgical History Past Surgical History: No pertinent Hx Family Medical History - Family Member Mother History Unknown: Yes Ethnicity: Unknown Living Status: Unknown Hx Family Cancer: (Unknown) Hx Family Coronary Artery Disease: (Unknown) Hx Family Congestive Heart Failure: (Unknown) Hx Family Hypertension: (Unknown) Hx Family Stroke: (Unknown) Hx Family Diabetes: (Unknown) Hx Family Seizures: (Unknown) Hx Family Dementia: (Unknown) Hx Family AIDS: (Unknown) Hx Family HIV: No Hx Family COPD: (Unknown) Hx Family Hepatitis: (Unknown) Hx Family Psychiatric Problems: (Unknown) Hx Family Tuberculosis: (Unknown) Social History Smoke: No Alcohol: None Drugs: None Lives: [facility] - Medications Home Medications: Home Medication Medication Instructions Recorded Type Docusate Sodium [Colace] 200 mg PO BID cap 05/17/17 Rx Furosemide [Lasix] 40 mg PO DAILY tab 05/17/17 Rx Haloperidol Decanoate [Haldol Dec] 25 mg IM [id number] vial 05/17/17 Rx Donepezil Hcl [Aricept] 10 mg PO 1600 09/24/18 History Levothyroxine [Synthroid] 0.125 mg PO QDAC 09/24/18 History OLANZapine [ZyPREXA] 5 mg PO HS 09/24/18 History busPIRone [Buspar] 10 mg PO BID 09/24/18 History - Allergies Allergies/Adverse Reactions: Allergies Allergy/AdvReac Type Severity Reaction Status Date / Time No Known Allergies Allergy Verified 06/16/16 20:02 Review of Systems - Review of Systems Constitutional: Report: No Significant Eyes: Report: No Significant ENT: Report: No Significant Respiratory: Report: No Significant Cardiovascular: Report: No Significant Gastrointestinal: Report: No Significant Genitourinary: Report: No Significant Musculoskeletal: Report: No Significant Skin: Report: No Significant Neurological: Report: No Significant Physical Exam - Physical Exam HEENT: Report: Ears Nose Throat within normal limits, Pharnyx within normal limits Neck: Report: Within normal limits Cardiovascular Systems: Report: +s1/s2 noted Respiratory: Report: Breath Sounds are within normal limits Back: Report: Inspection of back is within normal limits. Extremities: Report: Non-tender to palpation. Neuro/Psych: Report: Mood affect is within normal limits - Lab Results All Lab Results last 24 hours: Laboratory Results - last 24 hr 09/24/18 09/24/18 09/24/18 19:25 19:40 19:40 WBC 5.6 RBC 4.63 Hgb 13.5 Hct 41.7 MCV 89.9 MCH 29.1 MCHC Differential 32.4 RDW 12.9 Plt Count 111 L MPV 12.3 Neutrophils % 67.0 Lymphocytes % 20.2 Monocytes % 10.1 H Eosinophils % 1.8 Basophils % 0.9 Sodium 140 Potassium 3.6 Chloride 106 Carbon Dioxide 27.9 Anion Gap 9.7 BUN 15 Creatinine 0.7 Est GFR ( Amer) TNP Est GFR (Non-Af Amer) TNP BUN/Creatinine Ratio 21.4 Glucose 88 Calcium 8.8 Total Bilirubin 0.4 AST 13 ALT 6 L Alkaline Phosphatase 62 Troponin I Total Protein 5.7 L Albumin 3.5 L Globulin 2.2 Albumin/Globulin Ratio 1.6 Triglycerides 46 Cholesterol 116 LDL Cholesterol Direct 59 L HDL Cholesterol 49 TSH 2.85 Salicylates < 25.0 L Acetaminophen < 10.0 L Ethyl Alcohol < 10 09/24/18 09/24/18 19:40 19:40 WBC RBC Hgb Hct MCV MCH MCHC Differential RDW Plt Count MPV Neutrophils % Lymphocytes % Monocytes % Eosinophils % Basophils % Sodium Potassium Chloride Carbon Dioxide Anion Gap BUN Creatinine Est GFR ( Amer) Est GFR (Non-Af Amer) BUN/Creatinine Ratio Glucose Calcium Total Bilirubin AST ALT Alkaline Phosphatase Troponin I < 0.01 L Total Protein Albumin Globulin Albumin/Globulin Ratio Triglycerides 53 Cholesterol 115 LDL Cholesterol Direct 62 L HDL Cholesterol 50 TSH Salicylates Acetaminophen Ethyl Alcohol - Assessment Assessment: Current Active Problems Problem Status Onset AGITATION AND LEG REDNESS Acute psychosis HTN Asthma/COPD DVT/PE Dyslipidemia Dementia Thyroid Disorder OA - Plan Plan: admitted to [facility] continue home meds
--- NOTE | 2018-09-25 17:22 | Psychiatric Evaluation ---
DATE OF SERVICE: 09/24/2018 IDENTIFYING DATA: The patient is a 77-year-old woman, resident of [facility]. Information obtained by directly interviewing the patient as well as reviewing the admission papers and they are reliable. JUSTIFICATION FOR HOSPITALIZATION: The patient is admitted on voluntary basis in view of her agitation and aggressive behavior. CHIEF COMPLAINT: "I don't care." HISTORY OF PRESENT ILLNESS: This is one of multiple psychiatric hospitalizations for this patient who had been hospitalized under my care in the past that was in 2017. The patient has been diagnosed to have schizophrenia, chronic paranoid type and the patient is being followed by Dr. Monroe at [facility]. On the day of the hospitalization, the patient is reported to have been out of control and has been screaming and yelling and has been noncompliant with the medication and also has been aggressive towards the staff members and hence the patient has to be referred over here. Sleep and appetite prior to the hospitalization are noted to be very poor. PAST PSYCHIATRIC HISTORY: Please refer to the above. MEDICAL HISTORY: Physical examination is requested to be done by Dr. Mackay. SUBSTANCE ABUSE HISTORY: None. STRENGTH AND ASSETS: The patient is in good physical health. MENTAL STATUS EXAMINATION: The patient is a 77-year-old, looking her stated age, superficially cooperative. The patient is very paranoid. The patient is talking to self, not making much sense. Insight and judgment at this time are very much impaired. The patient is aggressive and is reported to have been going up to the staff. The patient's short and long-term memory are noted to be very poor at this time. The patient is not answering the questions, but the patient is getting easily irritable when I am asking the questions. Attention span and concentration are noted to be very poor. DIAGNOSTIC IMPRESSION: AXIS I: Schizophrenia, chronic paranoid type. AXIS II: None. AXIS IB: Dementia and behavioral change, secondary trait. AXIS II: None. AXIS III: As per Dr. Mackay. IMMEDIATE TREATMENT PLAN: The patient is going to be observed on inpatient unit, provided with supportive psychotherapy. The patient is going to be closely monitored. Encouraged her to participate in groups and verbalize the concerns. The patient is going to be continued on Haldol on a p.r.n. basis and olanzapine is going to be given 5 mg at bedtime. The patient is going to be closely monitored. Once stabilized, the patient is going to be discharged to self to be followed up on an outpatient basis. JOB# [id number]
[2018-09-26] MEDS: Levothyroxine 0.125 Mg Tab PO SCH (06:30)
--- NOTE | 2018-09-26 06:40 | General Progress Note ---
Subjective - Review of Systems Service Date: 09/26/18 Subjective: awake alert afebrile VS T97.6 P91 R20 BP 109/60 Objective - Results Result Diagrams: 09/24/18 19:25 09/24/18 19:40 Recent Labs: Laboratory Last Values WBC 5.6 Th/cmm (4.8-10.8) 09/24/18 19:25 RBC 4.63 Mil/cmm (3.80-5.20) 09/24/18 19:25 Hgb 13.5 gm/dL (12-16) 09/24/18 19:25 Hct 41.7 % (41.0-60) 09/24/18 19:25 MCV 89.9 fl (81-100) 09/24/18 19:25 MCH 29.1 pg (27.0-31.0) 09/24/18: MCHC Differential 32.4 pg (28.0-36.0) 09/24/18 19:25 RDW 12.9 % (11.5-20.0) 09/24/18:25 Plt Count 111 Th/cmm (150-400) L 09/24/18 19:25 MPV 12.3 fl 09/24/18 19:25 Neutrophils % 67.0 % (40.0-80.0) 09/24/18 19:25 Lymphocytes % 20.2 % (20.0-50.0) 09/24/18 19: Monocytes % 10.1 % (2.0-10.0) H 09/24/18: Eosinophils % 1.8 % (0.0-5.0) 09/24/18 19: Basophils % 0.9 % (0.0-2.0) 09/24/18 19:25 Sodium 140 mEq/L (136-145) 09/24/18 19:40 Potassium 3.6 mEq/L (3.5-5.1) 09/24/18:40 Chloride 106 mEq/L (98-107) 09/24/18 19:40 Carbon Dioxide 27.9 mEq/L (21.0-31.0) 09/24/18 19:40 Anion Gap 9.7 (7.0-16.0) 09/24/18 19:40 BUN 15 mg/dL (7-25) 09/24/18 19:40 Creatinine 0.7 mg/dL (0.6-1.2) 09/24/18 19:40 Est GFR ( Amer) TNP 09/24/18 19:40 Est GFR (Non-Af Amer) TNP 09/24/18 19:40 BUN/Creatinine Ratio 21.4 09/24/18 19:40 Glucose 88 mg/dL (70-105) 09/24/18 19:40 Calcium 8.8 mg/dL (8.6-10.3) 09/24/18 19:40 Total Bilirubin 0.4 mg/dL (0.3-1.0) 09/24/18 19:40 AST 13 U/L (13-39) 09/24/18 19:40 ALT 6 U/L (7-52) L 09/24/18 19:40 Alkaline Phosphatase 62 U/L (34-104) 09/24/18 19:40 Troponin I < 0.01 ng/mL (0.01-0.05) L 09/24/18 19:40 Total Protein 5.7 gm/dL (6.0-8.3) L 09/24/18 19:40 Albumin 3.5 gm/dL (3.7-5.3) L 09/24/18 19:40 Globulin 2.2 gm/dL 09/24/18 19:40 Albumin/Globulin Ratio 1.6 (1.0-1.8) 09/24/18 19:40 Triglycerides 53 mg/dL (<150) 09/24/18 19:40 Cholesterol 115 mg/dL (<200) 09/24/18 19:40 LDL Cholesterol Direct 62 mg/dL (75-193) L 09/24/18 19:40 HDL Cholesterol 50 mg/dL (23-92) 09/24/18 19:40 TSH 2.85 uIU/ml (0.34-5.60) 09/24/18 19:40 Salicylates < 25.0 mg/L (30.0-100.0) L 09/24/18 19:40 Acetaminophen < 10.0 ug/mL (10.0-30.0) L 09/24/18 19:40 Ethyl Alcohol < 10 mg/dL (0-10) 09/24/18 19:40 - Physical Exam Vitals and I&O: Vital Signs Temp 97.6 F 09/25/18 14:00 Pulse 91 09/25/18 14:00 Resp 20 09/25/18 14:00 BP 109/60 09/25/18 14:00 Pulse Ox 93 09/25/18 14:00 Intake & Output 09/25/18 09/25/18 09/26/18 06:59 18:59 06:59 Intake Total 600 Balance 600 Intake: Oral 600 Other: # Voids 2 # Bowel Movements 0 Active Medications: Current Medications Acetaminophen (Tylenol) 650 mg PO Q6H PRN PRN Reason: Mild Pain / Temp above 100 Stop: 11/23/18 22:39 Buspirone HCl (Buspar) 10 mg PO BID [facility]; Protocol Stop: 11/24/18 08:59 Last Admin: 09/25/18 16:27 Dose: 10 mg Docusate Sodium (Colace) 200 mg PO BID [facility] Stop: 11/24/18 08:59 Last Admin: 09/25/18 16:27 Dose: 200 mg Donepezil HCl (Aricept) 10 mg PO 1600 [facility] Stop: 11/24/18 15:59 Last Admin: 09/25/18 15:23 Dose: 10 mg Furosemide (Lasix) 40 mg PO DAILY [facility] Stop: 11/24/18 08:59 Last Admin: 09/25/18 08:27 Dose: Not Given Haloperidol Decanoate (Haldol Dec) 25 mg IM [id number] [facility]; Protocol Stop: 11/23/18 22:59 Last Admin: 09/25/18 00:13 Dose: Not Given Levothyroxine Sodium (Synthroid) 0.125 mg PO QDAC [facility] Stop: 11/24/18 07:29 Last Admin: 09/26/18 06:30 Dose: Not Given Lorazepam (Ativan) 0.5 mg PO Q4HR PRN; Protocol PRN Reason: Agitation Stop: 10/24/18 22:39 Magnesium Hydroxide (Milk Of Magnesia) 30 ml PO HS PRN PRN Reason: Constipation Olanzapine (Zyprexa) 5 mg PO HS [facility]; Protocol Stop: 11/24/18 20:59 Last Admin: 09/25/18 20:46 Dose: 5 mg Zolpidem Tartrate (Ambien) 5 mg PO HS PRN PRN Reason: Insomnia Stop: 11/23/18 22:39 General: Alert, No acute distress HEENT: Atraumatic, PERRLA, EOMI Neck: Supple Cardiovascular: Regular rate, Normal S1, Normal S2 Lungs: Clear to auscultation Abdomen: Bowel sounds Extremities: no Clubbing, no Cyanosis - Procedures Procedures: Procedures Procedure Code Date AFTER CATARACT LASER SURGERY 52324 03/02/10 AFTER-CATAR DISCISSION 13.64 03/02/10 D & C NEC 69.09 09/12/02 DILATION AND CURETTAGE 32850 09/12/02 GROUP PSYCHOTHERAPY 39836 03/22/15 GROUP PSYCHOTHERAPY [id number] 03/22/15 INFLUENZA VACCINATION 99.52 04/26/13 OTHER GROUP THERAPY 94.44 10/29/14 VACCINATION NEC 99.55 04/26/13 Assessment/Plan - Problem List Patient Problems: All Active Problems AGITATION AND LEG REDNESS (Acute) - Assessment Assessment: Current Active Problems Problem Status Onset AGITATION AND LEG REDNESS Acute psychosis HTN Asthma/COPD DVT/PE Dyslipidemia Dementia Thyroid Disorder OA - Plan Plan: admitted to [facility] continue home meds
--- NOTE | 2018-09-26 11:13 | Progress Notes ---
DATE: 09/26/2018 SUBJECTIVE: Staff was spoken to. The patient is interviewed. Mood is noted to be irritable. Affect is constricted. Coping skills are noted to be extremely poor. The patient has been screaming and yelling. The patient is reported to have been having some problem with the cough and asked her about whether she needs medication for the cough. The patient has been going on a tangent and has been stating there is nothing great about this morning and she is screaming and yelling. ASSESSMENT: The patient is still impulsive and psychotic. PLAN: To continue the patient with the current medications and follow. JOB# [id number]
--- NOTE | 2018-09-27 06:12 | General Progress Note ---
Subjective - Review of Systems Service Date: 09/27/18 Subjective: awake alert afebrile VS T97.7 P78 R18 BP 119/73 Objective - Results Result Diagrams: 09/24/18 19:25 09/24/18 19:40 Recent Labs: Laboratory Last Values WBC 5.6 Th/cmm (4.8-10.8) 09/24/18 19:25 RBC 4.63 Mil/cmm (3.80-5.20) 09/24/18 19:25 Hgb 13.5 gm/dL (12-16) 09/24/18 19:25 Hct 41.7 % (41.0-60) 09/24/18 19:25 MCV 89.9 fl (81-100) 09/24/18 19:25 MCH 29.1 pg (27.0-31.0) 09/24/18 19:25 MCHC Differential 32.4 pg (28.0-36.0) 09/24/18 19:25 RDW 12.9 % (11.5-20.0) 09/24/18 19:25 Plt Count 111 Th/cmm (150-400) L 09/24/18 19:25 MPV 12.3 fl 09/24/18 19:25 Neutrophils % 67.0 % (40.0-80.0) 09/24/18 19:25 Lymphocytes % 20.2 % (20.0-50.0) 09/24/18 19:25 Monocytes % 10.1 % (2.0-10.0) H 09/24/18:25 Eosinophils % 1.8 % (0.0-5.0) 09/24/18 19: Basophils % 0.9 % (0.0-2.0) 09/24/18 19:25 Sodium 140 mEq/L (136-145) 09/24/18 19:40 Potassium 3.6 mEq/L (3.5-5.1) 09/24/18 19:40 Chloride 106 mEq/L (98-107) 09/24/18 19:40 Carbon Dioxide 27.9 mEq/L (21.0-31.0) 09/24/18 19:40 Anion Gap 9.7 (7.0-16.0) 09/24/18 19:40 BUN 15 mg/dL (7-25) 09/24/18 19:40 Creatinine 0.7 mg/dL (0.6-1.2) 09/24/18 19:40 Est GFR ( Amer) TNP 09/24/18 19:40 Est GFR (Non-Af Amer) TNP 09/24/18 19:40 BUN/Creatinine Ratio 21.4 09/24/18 19:40 Glucose 88 mg/dL (70-105) 09/24/18 19:40 Calcium 8.8 mg/dL (8.6-10.3) 09/24/18 19:40 Total Bilirubin 0.4 mg/dL (0.3-1.0) 09/24/18 19:40 AST 13 U/L (13-39) 09/24/18 19:40 ALT 6 U/L (7-52) L 09/24/18 19:40 Alkaline Phosphatase 62 U/L (34-104) 09/24/18 19:40 Troponin I < 0.01 ng/mL (0.01-0.05) L 09/24/18 19:40 Total Protein 5.7 gm/dL (6.0-8.3) L 09/24/18 19:40 Albumin 3.5 gm/dL (3.7-5.3) L 09/24/18 19:40 Globulin 2.2 gm/dL 09/24/18 19:40 Albumin/Globulin Ratio 1.6 (1.0-1.8) 09/24/18 19:40 Triglycerides 53 mg/dL (<150) 09/24/18 19:40 Cholesterol 115 mg/dL (<200) 09/24/18 19:40 LDL Cholesterol Direct 62 mg/dL (75-193) L 09/24/18 19:40 HDL Cholesterol 50 mg/dL (23-92) 09/24/18 19:40 TSH 2.85 uIU/ml (0.34-5.60) 09/24/18 19:40 Salicylates < 25.0 mg/L (30.0-100.0) L 09/24/18 19:40 Acetaminophen < 10.0 ug/mL (10.0-30.0) L 09/24/18 19:40 Ethyl Alcohol < 10 mg/dL (0-10) 09/24/18 19:40 RPR NONREACTIVE (NONREACTIVE) 09/24/18 19:40 - Physical Exam Vitals and I&O: Vital Signs Temp 97.7 F 09/27/18 04:56 Pulse 78 09/27/18 04:56 Resp 18 09/27/18 04:56 BP 119/73 09/27/18 04:56 Pulse Ox 93 09/27/18 04:56 Intake & Output 09/26/18 09/26/18 09/27/18 06:59 18:59 06:59 Intake Total 480 Balance 480 Intake: Oral 480 Other: # Voids 2 2 # Bowel Movements 0 Active Medications: Current Medications Acetaminophen (Tylenol) 650 mg PO Q6H PRN PRN Reason: Mild Pain / Temp above 100 Stop: 11/23/18 22:39 Buspirone HCl (Buspar) 10 mg PO BID COUNT [facility]CLUD[facility]; Protocol Stop: 11/24/18 08:59 Last Admin: 09/26/18 16:20 Dose: 10 mg Docusate Sodium (Colace) 200 mg PO BID [facility]CLUD[facility] Stop: 11/24/18 08:59 Last Admin: 09/26/18 16:20 Dose: 200 mg Donepezil HCl (Aricept) 10 mg PO 1600 COUNT [facility]CLUDES [facility] Stop: 11/24/18 15:59 Last Admin: 09/26/18 15:39 Dose: 10 mg Furosemide (Lasix) 40 mg PO DAILY COUNT [facility]CLUDES [facility] Stop: 11/24/18 08:59 Last Admin: 09/26/18 08:09 Dose: 40 mg Haloperidol Decanoate (Haldol Dec) 25 mg IM [id number] COUNT INCLUDES [facility]; Protocol Stop: 11/23/18 22:59 Last Admin: 09/25/18 00:13 Dose: Not Given Levothyroxine Sodium (Synthroid) 0.125 mg PO QDAC [facility] Stop: 11/24/18 07:29 Last Admin: 09/26/18 06:30 Dose: Not Given Lorazepam (Ativan) 0.5 mg PO Q4HR PRN; Protocol PRN Reason: Agitation Stop: 10/24/18 22:39 Magnesium Hydroxide (Milk Of Magnesia) 30 ml PO HS PRN PRN Reason: Constipation Olanzapine (Zyprexa) 5 mg PO HS COUNT [facility]CLUDES [facility]; Protocol Stop: 11/24/18 20:59 Last Admin: 09/26/18 20:25 Dose: 5 mg Zolpidem Tartrate (Ambien) 5 mg PO HS PRN PRN Reason: Insomnia Stop: 11/23/18 22:39 General: Alert, No acute distress HEENT: Atraumatic, PERRLA, EOMI Neck: Supple Cardiovascular: Regular rate, Normal S1, Normal S2 Lungs: Clear to auscultation Abdomen: Bowel sounds Extremities: no Clubbing, no Cyanosis - Procedures Procedures: Procedures Procedure Code Date AFTER CATARACT LASER SURGERY 00349 03/02/10 AFTER-CATAR DISCISSION 13.64 03/02/10 D & C NEC 69.09 09/12/02 DILATION AND CURETTAGE 16719 09/12/02 GROUP PSYCHOTHERAPY 68933 03/22/15 GROUP PSYCHOTHERAPY [id number] 03/22/15 INFLUENZA VACCINATION 99.52 04/26/13 OTHER GROUP THERAPY 94.44 10/29/14 VACCINATION NEC 99.55 04/26/13 Assessment/Plan - Problem List Patient Problems: All Active Problems AGITATION AND LEG REDNESS (Acute) - Assessment Assessment: Current Active Problems Problem Status Onset AGITATION AND LEG REDNESS Acute psychosis HTN Asthma/COPD DVT/PE Dyslipidemia Dementia Thyroid Disorder OA - Plan Plan: admitted to [facility] Nutritional Asmnt/Malnutr-PDOC - Dietary Evaluation Malnutrition Findings (Please click <Entered> for more info): Nutritional Asmnt/Malnutrition Start: 09/26/18 14: 27 Text: Status: Complete Freq: Protocol: Document 09/26/18 14:27 LCHENG (Rec: 09/26/18 14:53 LCHENG [email or web address]) Nutritional Asmnt/Malnutrition Patient General Information Nutritional Screening Moderate Risk Consult Diagnosis psych eval Pertinent Medical Hx/Surgical Hx HTN, asthma, COPD, dementia, psychosis, hypothyroidism, OA Subjective Information Pt seen sitting on bed, quiet. Consult received for wt loss and pt is vegetarian. Spoke with pt and RN yesterday regarding diet preference. Pt is vegetarian, eat dairy products, likes fruits, milk, yogurt, ice cream, cheese. RN reported pt had wt loss of 8 lb per family. Pt was depressed and admitted here. Possible poor appetite for a while. Per EMR, PO intake 25- 100%. Current Diet Order/ Nutrition Support regular Pertinent Medications lasix, synthroid Pertinent Labs 09/24 Alb 3.5 Nutritional Hx/Data Height 1.63 m Height (Calculated Centimeters) 162.6 Current Weight (lbs) 48.534 kg Weight (Calculated Kilograms) 48.5 Weight (Calculated Grams) 75582.4 Body Mass Index (BMI) 18.3 GI Symptoms GI Symptoms None Last BM none Difficult in: None Skin Integrity/Comment: intact Current %PO Fair (50-74%) Estimated Nutritional Goals Calories/Kcals/Kg 25-30 Kcals Calculated 2344-1485 Protein: Using Current wt Protein g/k Protein Calculated 55 Fluid: ml 1375-1650ml (1ml/kcal) Nutritional Problem No current Nutrition Prob Problem n/A Malnutrition Alert Body Fat Depletion (Non-Severe) Mild Depletion Intervention/Recommendation Comments 1. Continue with regular diet as ordered. Updated diet preference. Add Ensure TID with meals for extra kcal and protein. 2. Monitor PO intake, wt, labs and skin integrity 3. F/U as moderate risk in 3-5 days Expected Outcomes/Goals Expected Outcomes/Goals 1. PO intake to meet at least 75% of nutritional needs. 2. Wt stability, skin to remain intact, labs to approach WNL.
[2018-09-27] MEDS: Levothyroxine 0.125 Mg Tab PO SCH (06:35)
--- NOTE | 2018-09-27 20:02 | Consultation ---
DATE OF CONSULTATION: 09/26/2018 REFERRING PHYSICIAN: Regulo Santacruz MD. TYPE OF CONSULTATION: Psychology. HISTORY OF PRESENT ILLNESS: The patient is a 77-year-old female. The patient is a resident of [facility]. The following is by record review and by the patient's self report. The patient is being admitted due to agitation and aggressive behavior. Upon interview, the patient states that she does not care about being hospitalized and that she does not care to answer this chart writer's questions. The staff at the patient's facility report that she has had multiple screaming and yelling episodes and is noncompliant with the medication. The staff also reports that she has been aggressive towards the staff members as well. The patient declined to answer the questions about suicidal ideation, plan or intention. PAST MEDICAL HISTORY: Please see history and physical by Dr. Mackay. PAST PSYCHIATRIC HISTORY: The patient has a history of schizophrenia, chronic paranoid type. The patient is under the care of Dr. Monroe at [facility]. The patient has had multiple previous psychiatric hospitalizations. SUBSTANCE ABUSE HISTORY: The patient denied any history of alcohol, tobacco or illicit drug use. PSYCHOSOCIAL HISTORY: The patient states that she is and has two children, one daughter named Andressa, who is her DPOA, and one son name, Pierre. The patient states they are involved in her care. The patient did not answer questions about occupational or educational history. The patient states that she is Anglican. She denied any history of experiencing any physical or sexual abuse. She denied any current legal problems. The patient expects to return to her fdc placement at [facility] when stabilized. MENTAL STATUS EXAMINATION: The patient appears to be her stated age. The patient's attitude is superficially cooperative. Eye contact is poor. Speech is pressured. Mood is irritable. Affect is constricted. Thought process includes paranoid ideation as well as responding to internal stimuli. The patient is not making much sense. The patient did not answer questions about experiencing auditory or visual hallucinations. The patient's behavior is reported to be aggressive towards staff and easily agitated. Impulse control is inadequate. Concentration is poor. The patient has poor insight into her illness. The patient did not participate in the memory assessment. Sensorium is alert and oriented to self and place only. The patient did not participate in the interpretation of proverbs. Insight is impaired. Judgment is impaired. DIAGNOSTIC IMPRESSION: AXIS I: 1. History of schizophrenia, chronic paranoid type, in acute exacerbation. 2. Dementia with behavioral disturbance. AXIS II: Deferred. AXIS III: Per Dr. Mackay. TREATMENT PLAN: The patient has been seen by Dr. Santacruz for psychiatric evaluation and for the management of the patient's psychotropic medications. The patient is being continued on Haldol on a p.r.n. basis and olanzapine at 5 mg at bedtime according to the attending psychiatrist. We will provide supportive psychotherapy to include reality orientation, differentiation and integration. We will provide de-escalation and limit setting. We will provide motivational enhancement for the patient to become compliant and stay compliant with all aspects of her care and treatment. We will encourage the patient to demonstrate emotional and self-regulation and to verbalize her concerns versus acting out. We will provide coping strategies for phase of life issues as well as for chronic severe mental illness. Thank you, Dr. Santacruz, for this consult and the opportunity to participate in this patient's care. JOB# [id number] MTDD
--- NOTE | 2018-09-27 21:19 | Progress Notes ---
DATE: 09/27/2018 SUBJECTIVE: Staff was spoken to. The patient is interviewed. Mood is noted to be irritable. Affect is constricted. Continues to be very dysphoric. The patient has no insight into her illness. The patient tends to scream and yell whenever she does not get her way. No side effects to medications are noted. The patient is currently on Zyprexa. The patient in view of the paranoid delusions, the patient is not ready to be discharged to a lower level of care yet. ASSESSMENT: The patient is still psychotic and impulsive. PLAN: To continue the patient with the supportive therapy, encouraged the patient to verbalize the concerns rather than to act out. JOB# [id number]
--- NOTE | 2018-09-28 05:14 | General Progress Note ---
Subjective - Review of Systems Service Date: 09/28/18 Subjective: awake alert afebrile VS T97.7 P78 R18 BP 119/73 Objective - Results Result Diagrams: 09/24/18 19:25 09/24/18 19:40 Recent Labs: Laboratory Last Values WBC 5.6 Th/cmm (4.8-10.8) 09/24/18 19:25 RBC 4.63 Mil/cmm (3.80-5.20) 09/24/18 19:25 Hgb 13.5 gm/dL (12-16) 09/24/18 19:25 Hct 41.7 % (41.0-60) 09/24/18 19:25 MCV 89.9 fl (81-100) 09/24/18 19:25 MCH 29.1 pg (27.0-31.0) 09/24/18 19:25 MCHC Differential 32.4 pg (28.0-36.0) 09/24/18 19:25 RDW 12.9 % (11.5-20.0) 09/24/18 19:25 Plt Count 111 Th/cmm (150-400) L 09/24/18 19:25 MPV 12.3 fl 09/24/18 19:25 Neutrophils % 67.0 % (40.0-80.0) 09/24/18 19:25 Lymphocytes % 20.2 % (20.0-50.0) 09/24/18 19:25 Monocytes % 10.1 % (2.0-10.0) H 09/24/18:25 Eosinophils % 1.8 % (0.0-5.0) 09/24/18 19: Basophils % 0.9 % (0.0-2.0) 09/24/18 19:25 Sodium 140 mEq/L (136-145) 09/24/18 19:40 Potassium 3.6 mEq/L (3.5-5.1) 09/24/18 19:40 Chloride 106 mEq/L (98-107) 09/24/18 19:40 Carbon Dioxide 27.9 mEq/L (21.0-31.0) 09/24/18 19:40 Anion Gap 9.7 (7.0-16.0) 09/24/18 19:40 BUN 15 mg/dL (7-25) 09/24/18 19:40 Creatinine 0.7 mg/dL (0.6-1.2) 09/24/18 19:40 Est GFR ( Amer) TNP 09/24/18 19:40 Est GFR (Non-Af Amer) TNP 09/24/18 19:40 BUN/Creatinine Ratio 21.4 09/24/18 19:40 Glucose 88 mg/dL (70-105) 09/24/18 19:40 Calcium 8.8 mg/dL (8.6-10.3) 09/24/18 19:40 Total Bilirubin 0.4 mg/dL (0.3-1.0) 09/24/18 19:40 AST 13 U/L (13-39) 09/24/18 19:40 ALT 6 U/L (7-52) L 09/24/18 19:40 Alkaline Phosphatase 62 U/L (34-104) 09/24/18 19:40 Troponin I < 0.01 ng/mL (0.01-0.05) L 09/24/18 19:40 Total Protein 5.7 gm/dL (6.0-8.3) L 09/24/18 19:40 Albumin 3.5 gm/dL (3.7-5.3) L 09/24/18 19:40 Globulin 2.2 gm/dL 09/24/18 19:40 Albumin/Globulin Ratio 1.6 (1.0-1.8) 09/24/18 19:40 Triglycerides 53 mg/dL (<150) 09/24/18 19:40 Cholesterol 115 mg/dL (<200) 09/24/18 19:40 LDL Cholesterol Direct 62 mg/dL (75-193) L 09/24/18 19:40 HDL Cholesterol 50 mg/dL (23-92) 09/24/18 19:40 TSH 2.85 uIU/ml (0.34-5.60) 09/24/18 19:40 Salicylates < 25.0 mg/L (30.0-100.0) L 09/24/18 19:40 Acetaminophen < 10.0 ug/mL (10.0-30.0) L 09/24/18 19:40 Ethyl Alcohol < 10 mg/dL (0-10) 09/24/18 19:40 RPR NONREACTIVE (NONREACTIVE) 09/24/18 19:40 - Physical Exam Vitals and I&O: Vital Signs Temp 97.7 F 09/27/18 04:56 Pulse 78 09/27/18 04:56 Resp 20 09/27/18 08:00 BP 119/73 09/27/18 09:16 Pulse Ox 93 09/27/18 04:56 Intake & Output 09/27/18 09/27/18 09/28/18 06:59 18:59 06:59 Intake Total 480 120 Balance 480 120 Intake: Oral 480 120 Other: # Voids 2 1 # Bowel Movements 0 Active Medications: Current Medications Acetaminophen (Tylenol) 650 mg PO Q6H PRN PRN Reason: Mild Pain / Temp above 100 Stop: 11/23/18 22:39 Buspirone HCl (Buspar) 10 mg PO BID [facility]; Protocol Stop: 11/24/18 08:59 Last Admin: 09/27/18 16:21 Dose: 10 mg Docusate Sodium (Colace) 200 mg PO BID [facility] Stop: 11/24/18 08:59 Last Admin: 09/27/18 16:22 Dose: 200 mg Donepezil HCl (Aricept) 10 mg PO 1600 [facility] Stop: 11/24/18 15:59 Last Admin: 09/27/18 16:43 Dose: Not Given Furosemide (Lasix) 40 mg PO DAILY [facility] Stop: 11/24/18 08:59 Last Admin: 09/27/18 09:16 Dose: 40 mg Haloperidol Decanoate (Haldol Dec) 25 mg IM [id number] [facility]; Protocol Stop: 11/23/18 22:59 Last Admin: 09/25/18 00:13 Dose: Not Given Levothyroxine Sodium (Synthroid) 0.125 mg PO QDAC [facility] Stop: 11/24/18 07:29 Last Admin: 09/27/18 06:35 Dose: 0.125 mg Lorazepam (Ativan) 0.5 mg PO Q4HR PRN; Protocol PRN Reason: Agitation Stop: 10/24/18 22:39 Last Admin: 09/28/18 01:07 Dose: 0.5 mg Magnesium Hydroxide (Milk Of Magnesia) 30 ml PO HS PRN PRN Reason: Constipation Olanzapine (Zyprexa) 5 mg PO HS [facility]; Protocol Stop: 11/24/18 20:59 Last Admin: 09/27/18 20:48 Dose: 5 mg Zolpidem Tartrate (Ambien) 5 mg PO HS PRN PRN Reason: Insomnia Stop: 11/23/18 22:39 Last Admin: 09/27/18 20:48 Dose: 5 mg General: Alert, No acute distress HEENT: Atraumatic, PERRLA, EOMI Neck: Supple Cardiovascular: Regular rate, Normal S1, Normal S2 Lungs: Clear to auscultation Abdomen: Bowel sounds Extremities: no Clubbing, no Cyanosis - Procedures Procedures: Procedures Procedure Code Date AFTER CATARACT LASER SURGERY 52753 03/02/10 AFTER-CATAR DISCISSION 13.64 03/02/10 D & C NEC 69.09 09/12/02 DILATION AND CURETTAGE 82297 09/12/02 GROUP PSYCHOTHERAPY 82431 03/22/15 GROUP PSYCHOTHERAPY GZHZZZZ 03/22/15 INFLUENZA VACCINATION 99.52 04/26/13 OTHER GROUP THERAPY 94.44 10/29/14 VACCINATION NEC 99.55 04/26/13 Assessment/Plan - Problem List Patient Problems: All Active Problems AGITATION AND LEG REDNESS (Acute) - Assessment Assessment: Current Active Problems Problem Status Onset AGITATION AND LEG REDNESS Acute psychosis HTN Asthma/COPD DVT/PE Dyslipidemia Dementia Thyroid Disorder OA - Plan Plan: admitted to [facility] Nutritional Asmnt/Malnutr-PDOC - Dietary Evaluation Malnutrition Findings (Please click <Entered> for more info): Nutritional Asmnt/Malnutrition Start: 09/26/18 14: 27 Text: Status: Complete Freq: Protocol: Document 09/26/18 14:27 LCHENG (Rec: 09/26/18 14:53 LCHENG [email or web address]) Nutritional Asmnt/Malnutrition Patient General Information Nutritional Screening Moderate Risk Consult Diagnosis psych eval Pertinent Medical Hx/Surgical Hx HTN, asthma, COPD, dementia, psychosis, hypothyroidism, OA Subjective Information Pt seen sitting on bed, quiet. Consult received for wt loss and pt is vegetarian. Spoke with pt and RN yesterday regarding diet preference. Pt is vegetarian, eat dairy products, likes fruits, milk, yogurt, ice cream, cheese. RN reported pt had wt loss of 8 lb per family. Pt was depressed and admitted here. Possible poor appetite for a while. Per EMR, PO intake 25- 100%. Current Diet Order/ Nutrition Support regular Pertinent Medications lasix, synthroid Pertinent Labs 09/24 Alb 3.5 Nutritional Hx/Data Height 1.63 m Height (Calculated Centimeters) 162.6 Current Weight (lbs) 48.534 kg Weight (Calculated Kilograms) 48.5 Weight (Calculated Grams) 68879.4 Body Mass Index (BMI) 18.3 GI Symptoms GI Symptoms None Last BM none Difficult in: None Skin Integrity/Comment: intact Current %PO Fair (50-74%) Estimated Nutritional Goals Calories/Kcals/Kg 25-30 Kcals Calculated 7122-0829 Protein: Using Current wt Protein g/k Protein Calculated 55 Fluid: ml 1375-1650ml (1ml/kcal) Nutritional Problem No current Nutrition Prob Problem n/A Malnutrition Alert Body Fat Depletion (Non-Severe) Mild Depletion Intervention/Recommendation Comments 1. Continue with regular diet as ordered. Updated diet preference. Add Ensure TID with meals for extra kcal and protein. 2. Monitor PO intake, wt, labs and skin integrity 3. F/U as moderate risk in 3-5 days Expected Outcomes/Goals Expected Outcomes/Goals 1. PO intake to meet at least 75% of nutritional needs. 2. Wt stability, skin to remain intact, labs to approach WNL.
[2018-09-28] MEDS: Levothyroxine 0.125 Mg Tab PO SCH (06:47)
--- NOTE | 2018-09-28 14:53 | Progress Notes ---
DATE: 09/28/2018 SUBJECTIVE: Staff was spoken to. The patient is interviewed. Mood is noted to be dysphoric. The patient is getting easily irritable and I am asking the questions to see how she has been doing. The patient is currently on olanzapine 5 mg at bedtime and the patient is also receiving on the Haldol Decanoate 25 mg every other week. The patient at this time is having difficult time to cope with the stress. The patient is getting easily frustrated. The patient had paranoia and the patient is feeling dizzy, but she is getting out of the bed and hence BuSpar has been discontinued and the patient is going to be continued on Ativan on a p.r.n. basis. ASSESSMENT: The patient is still psychotic. PLAN: To continue the patient with the current medications and followup. JOB# [id number]
--- NOTE | 2018-09-29 05:30 | General Progress Note ---
Subjective - Review of Systems Service Date: 09/29/18 Subjective: awake alert afebrile VS T97.9 P102 R19 BP 125/55 Objective - Results Result Diagrams: 09/24/18 19:25 09/24/18 19:40 Recent Labs: Laboratory Last Values WBC 5.6 Th/cmm (4.8-10.8) 09/24/18 19:25 RBC 4.63 Mil/cmm (3.80-5.20) 09/24/18 19:25 Hgb 13.5 gm/dL (12-16) 09/24/18 19:25 Hct 41.7 % (41.0-60) 09/24/18 19:25 MCV 89.9 fl (81-100) 09/24/18 19:25 MCH 29.1 pg (27.0-31.0) 09/24/18 19: MCHC Differential 32.4 pg (28.0-36.0) 09/24/18 19:25 RDW 12.9 % (11.5-20.0) 09/24/18:25 Plt Count 111 Th/cmm (150-400) L 09/24/18 19:25 MPV 12.3 fl 09/24/18 19:25 Neutrophils % 67.0 % (40.0-80.0) 09/24/18 19:25 Lymphocytes % 20.2 % (20.0-50.0) 09/24/18 19:25 Monocytes % 10.1 % (2.0-10.0) H 09/24/18: Eosinophils % 1.8 % (0.0-5.0) 09/24/18 19: Basophils % 0.9 % (0.0-2.0) 09/24/18 19:25 Sodium 140 mEq/L (136-145) 09/24/18 19:40 Potassium 3.6 mEq/L (3.5-5.1) 09/24/18:40 Chloride 106 mEq/L (98-107) 09/24/18 19:40 Carbon Dioxide 27.9 mEq/L (21.0-31.0) 09/24/18 19:40 Anion Gap 9.7 (7.0-16.0) 09/24/18 19:40 BUN 15 mg/dL (7-25) 09/24/18 19:40 Creatinine 0.7 mg/dL (0.6-1.2) 09/24/18 19:40 Est GFR ( Amer) TNP 09/24/18 19:40 Est GFR (Non-Af Amer) TNP 09/24/18 19:40 BUN/Creatinine Ratio 21.4 09/24/18 19:40 Glucose 88 mg/dL (70-105) 09/24/18 19:40 Calcium 8.8 mg/dL (8.6-10.3) 09/24/18 19:40 Total Bilirubin 0.4 mg/dL (0.3-1.0) 09/24/18 19:40 AST 13 U/L (13-39) 09/24/18 19:40 ALT 6 U/L (7-52) L 09/24/18 19:40 Alkaline Phosphatase 62 U/L (34-104) 09/24/18 19:40 Troponin I < 0.01 ng/mL (0.01-0.05) L 09/24/18 19:40 Total Protein 5.7 gm/dL (6.0-8.3) L 09/24/18 19:40 Albumin 3.5 gm/dL (3.7-5.3) L 09/24/18 19:40 Globulin 2.2 gm/dL 09/24/18 19:40 Albumin/Globulin Ratio 1.6 (1.0-1.8) 09/24/18 19:40 Triglycerides 53 mg/dL (<150) 09/24/18 19:40 Cholesterol 115 mg/dL (<200) 09/24/18 19:40 LDL Cholesterol Direct 62 mg/dL (75-193) L 09/24/18 19:40 HDL Cholesterol 50 mg/dL (23-92) 09/24/18 19:40 TSH 2.85 uIU/ml (0.34-5.60) 09/24/18 19:40 Salicylates < 25.0 mg/L (30.0-100.0) L 09/24/18 19:40 Acetaminophen < 10.0 ug/mL (10.0-30.0) L 09/24/18 19:40 Ethyl Alcohol < 10 mg/dL (0-10) 09/24/18 19:40 RPR NONREACTIVE (NONREACTIVE) 09/24/18 19:40 - Physical Exam Vitals and I&O: Vital Signs Temp 97.9 F 09/28/18 19:42 Pulse 102 09/28/18 19:42 Resp 19 09/28/18 19:42 BP 125/55 09/28/18 19:42 Pulse Ox 98 09/28/18 19:42 Intake & Output 09/28/18 09/28/18 09/29/18 06:59 18:59 06:59 Intake Total 240 960 120 Balance 240 960 120 Intake: Oral 240 960 120 Other: # Voids 3 3 3 # Bowel Movements 1 0 0 Active Medications: Current Medications Acetaminophen (Tylenol) 650 mg PO Q6H PRN PRN Reason: Mild Pain / Temp above 100 Stop: 11/23/18 22:39 Docusate Sodium (Colace) 200 mg PO BID [facility] Stop: 11/24/18 08:59 Last Admin: 09/28/18 16:33 Dose: 200 mg Donepezil HCl (Aricept) 10 mg PO 1600 [facility] Stop: 11/24/18 15:59 Last Admin: 09/28/18 16:33 Dose: 10 mg Furosemide (Lasix) 40 mg PO DAILY [facility] Stop: 11/24/18 08:59 Last Admin: 09/28/18 16:33 Dose: Not Given Haloperidol Decanoate (Haldol Dec) 25 mg IM [id number] [facility]; Protocol Stop: 11/23/18 22:59 Last Admin: 09/25/18 00:13 Dose: Not Given Levothyroxine Sodium (Synthroid) 0.125 mg PO QDAC [facility] Stop: 11/24/18 07:29 Last Admin: 09/28/18 06:47 Dose: 0.125 mg Lorazepam (Ativan) 0.5 mg PO Q4HR PRN; Protocol PRN Reason: Agitation Stop: 10/24/18 22:39 Last Admin: 09/29/18 02:53 Dose: 0.5 mg Magnesium Hydroxide (Milk Of Magnesia) 30 ml PO HS PRN PRN Reason: Constipation Olanzapine (Zyprexa) 5 mg PO HS [facility]; Protocol Stop: 11/24/18 20:59 Last Admin: 09/28/18 21:05 Dose: 5 mg Zolpidem Tartrate (Ambien) 5 mg PO HS PRN PRN Reason: Insomnia Stop: 11/23/18 22:39 Last Admin: 09/28/18 21:06 Dose: 5 mg General: Alert, No acute distress HEENT: Atraumatic, PERRLA, EOMI Neck: Supple Cardiovascular: Regular rate, Normal S1, Normal S2 Lungs: Clear to auscultation Abdomen: Bowel sounds Extremities: no Clubbing, no Cyanosis - Procedures Procedures: Procedures Procedure Code Date AFTER CATARACT LASER SURGERY 31128 03/02/10 AFTER-CATAR DISCISSION 13.64 03/02/10 D & C NEC 69.09 09/12/02 DILATION AND CURETTAGE 79026 09/12/02 GROUP PSYCHOTHERAPY 57249 03/22/15 GROUP PSYCHOTHERAPY GZHZZZZ 03/22/15 INFLUENZA VACCINATION 99.52 04/26/13 OTHER GROUP THERAPY 94.44 10/29/14 VACCINATION NEC 99.55 04/26/13 Assessment/Plan - Problem List Patient Problems: All Active Problems AGITATION AND LEG REDNESS (Acute) - Assessment Assessment: Current Active Problems Problem Status Onset AGITATION AND LEG REDNESS Acute psychosis HTN Asthma/COPD DVT/PE Dyslipidemia Dementia Thyroid Disorder OA - Plan Plan: admitted to [facility] Nutritional Asmnt/Malnutr-PDOC - Dietary Evaluation Malnutrition Findings (Please click <Entered> for more info): Nutritional Asmnt/Malnutrition Start: 09/26/18 14: 27 Text: Status: Complete Freq: Protocol: Document 09/26/18 14:27 LCHENG (Rec: 09/26/18 14:53 LCHENG [email or web address]) Nutritional Asmnt/Malnutrition Patient General Information Nutritional Screening Moderate Risk Consult Diagnosis psych eval Pertinent Medical Hx/Surgical Hx HTN, asthma, COPD, dementia, psychosis, hypothyroidism, OA Subjective Information Pt seen sitting on bed, quiet. Consult received for wt loss and pt is vegetarian. Spoke with pt and RN yesterday regarding diet preference. Pt is vegetarian, eat dairy products, likes fruits, milk, yogurt, ice cream, cheese. RN reported pt had wt loss of 8 lb per family. Pt was depressed and admitted here. Possible poor appetite for a while. Per EMR, PO intake 25- 100%. Current Diet Order/ Nutrition Support regular Pertinent Medications lasix, synthroid Pertinent Labs 09/24 Alb 3.5 Nutritional Hx/Data Height 1.63 m Height (Calculated Centimeters) 162.6 Current Weight (lbs) 48.534 kg Weight (Calculated Kilograms) 48.5 Weight (Calculated Grams) 04982.4 Body Mass Index (BMI) 18.3 GI Symptoms GI Symptoms None Last BM none Difficult in: None Skin Integrity/Comment: intact Current %PO Fair (50-74%) Estimated Nutritional Goals Calories/Kcals/Kg 25-30 Kcals Calculated 4794-8263 Protein: Using Current wt Protein g/k Protein Calculated 55 Fluid: ml 1375-1650ml (1ml/kcal) Nutritional Problem No current Nutrition Prob Problem n/A Malnutrition Alert Body Fat Depletion (Non-Severe) Mild Depletion Intervention/Recommendation Comments 1. Continue with regular diet as ordered. Updated diet preference. Add Ensure TID with meals for extra kcal and protein. 2. Monitor PO intake, wt, labs and skin integrity 3. F/U as moderate risk in 3-5 days Expected Outcomes/Goals Expected Outcomes/Goals 1. PO intake to meet at least 75% of nutritional needs. 2. Wt stability, skin to remain intact, labs to approach WNL.
[2018-09-29] MEDS: Levothyroxine 0.125 Mg Tab PO SCH (06:48)
--- NOTE | 2018-09-29 13:54 | Progress Notes ---
DATE: 09/29/2018 PSYCHIATRIC PROGRESS NOTE SUBJECTIVE: Staff was spoken to. The patient is interviewed. Mood is noted to be irritable. Affect is constricted. The patient has been getting easily irritable. The patient has dysphoria. Coping skills are noted to be very poor. Insight and judgment are also noted to be impaired. The patient has been stating that there is nothing for her to do in here and she needs to get back to the facility. The patient is reported to have been very agitated and anxious and the patient has to be given a dose of the Ativan this morning. ASSESSMENT: The patient is still psychotic and impulsive. PLAN: To continue the patient with the supportive therapy and followup. [facility]# [id number]
--- NOTE | 2018-09-30 05:16 | Progress Notes ---
DATE: 09/28/2018 DATE OF SERVICE: 09/28/2018 PSYCHOLOGY PROGRESS NOTE SUBJECTIVE: The patient is seen and is interviewed. Case is discussed with staff. The patient presents as mildly irritable and depressed. The patient states that she is feeling dizzy when she gets out of bed. There is some evidence of suspiciousness regarding her care by the healthcare providers here on the unit. OBJECTIVE: Mood is dysphoric. Affect is mood congruent. Thought process includes perseveration on the patient's medical condition and somewhat confused. The patient denied any auditory or visual hallucinations or delusions. The patient denied experiencing suicidal ideation, plan, or intention. However, the patient did acknowledge that she has passive thoughts about her life ending. The patient's behavior has been withdrawn and isolative. Staff reports the patient is taking her p.o. medications. ASSESSMENT AND PLAN: The patient's psychosis and depression persist. We provided reality orientation, differentiation, and integration. We provided cognitive behavioral therapy to reduce the patient's depression. We provided coping strategies for phase of life issues. We provided remotivation for the patient to become compliant and stay compliant with her care and treatment. We provided daily opportunities for the patient to verbally contract for safety. The patient was able to verbally contract for no self-harm at the time of this visit. We will follow up in 2 days to continue the present treatment. JOB# [id number] [facility]
[2018-09-30] MEDS: Levothyroxine 0.125 Mg Tab PO SCH (06:40)
--- NOTE | 2018-09-30 08:02 | General Progress Note ---
Subjective - Review of Systems Service Date: 09/30/18 Subjective: awake alert afebrile VS T98.2 P66 R19 BP 97/54 Objective - Results Result Diagrams: 09/24/18 19:25 09/24/18 19:40 Recent Labs: Laboratory Last Values WBC 5.6 Th/cmm (4.8-10.8) 09/24/18 19:25 RBC 4.63 Mil/cmm (3.80-5.20) 09/24/18 19:25 Hgb 13.5 gm/dL (12-16) 09/24/18 19:25 Hct 41.7 % (41.0-60) 09/24/18 19:25 MCV 89.9 fl (81-100) 09/24/18 19:25 MCH 29.1 pg (27.0-31.0) 09/24/18 19: MCHC Differential 32.4 pg (28.0-36.0) 09/24/18 19:25 RDW 12.9 % (11.5-20.0) 09/24/18:25 Plt Count 111 Th/cmm (150-400) L 09/24/18 19:25 MPV 12.3 fl 09/24/18 19:25 Neutrophils % 67.0 % (40.0-80.0) 09/24/18 19:25 Lymphocytes % 20.2 % (20.0-50.0) 09/24/18 19:25 Monocytes % 10.1 % (2.0-10.0) H 09/24/18: Eosinophils % 1.8 % (0.0-5.0) 09/24/18 19: Basophils % 0.9 % (0.0-2.0) 09/24/18 19:25 Sodium 140 mEq/L (136-145) 09/24/18 19:40 Potassium 3.6 mEq/L (3.5-5.1) 09/24/18:40 Chloride 106 mEq/L (98-107) 09/24/18 19:40 Carbon Dioxide 27.9 mEq/L (21.0-31.0) 09/24/18 19:40 Anion Gap 9.7 (7.0-16.0) 09/24/18 19:40 BUN 15 mg/dL (7-25) 09/24/18 19:40 Creatinine 0.7 mg/dL (0.6-1.2) 09/24/18 19:40 Est GFR ( Amer) TNP 09/24/18 19:40 Est GFR (Non-Af Amer) TNP 09/24/18 19:40 BUN/Creatinine Ratio 21.4 09/24/18 19:40 Glucose 88 mg/dL (70-105) 09/24/18 19:40 Calcium 8.8 mg/dL (8.6-10.3) 09/24/18 19:40 Total Bilirubin 0.4 mg/dL (0.3-1.0) 09/24/18 19:40 AST 13 U/L (13-39) 09/24/18 19:40 ALT 6 U/L (7-52) L 09/24/18 19:40 Alkaline Phosphatase 62 U/L (34-104) 09/24/18 19:40 Troponin I < 0.01 ng/mL (0.01-0.05) L 09/24/18 19:40 Total Protein 5.7 gm/dL (6.0-8.3) L 09/24/18 19:40 Albumin 3.5 gm/dL (3.7-5.3) L 09/24/18 19:40 Globulin 2.2 gm/dL 09/24/18 19:40 Albumin/Globulin Ratio 1.6 (1.0-1.8) 09/24/18 19:40 Triglycerides 53 mg/dL (<150) 09/24/18 19:40 Cholesterol 115 mg/dL (<200) 09/24/18 19:40 LDL Cholesterol Direct 62 mg/dL (75-193) L 09/24/18 19:40 HDL Cholesterol 50 mg/dL (23-92) 09/24/18 19:40 TSH 2.85 uIU/ml (0.34-5.60) 09/24/18 19:40 Salicylates < 25.0 mg/L (30.0-100.0) L 09/24/18 19:40 Acetaminophen < 10.0 ug/mL (10.0-30.0) L 09/24/18 19:40 Ethyl Alcohol < 10 mg/dL (0-10) 09/24/18 19:40 RPR NONREACTIVE (NONREACTIVE) 09/24/18 19:40 - Physical Exam Vitals and I&O: Vital Signs Temp 98.2 F 09/30/18 05:44 Pulse 66 09/30/18 05:44 Resp 19 09/30/18 05:44 BP 97/54 09/30/18 05:44 Pulse Ox 97 09/30/18 05:44 Intake & Output 09/29/18 09/30/18 09/30/18 18:59 06:59 18:59 Intake Total 220 Balance 220 Intake: Oral 220 Other: # Voids 2 # Bowel Movements 0 Active Medications: Current Medications Acetaminophen (Tylenol) 650 mg PO Q6H PRN PRN Reason: Mild Pain / Temp above 100 Stop: 11/23/18 22:39 Docusate Sodium (Colace) 200 mg PO BID [facility] Stop: 11/24/18 08:59 Last Admin: 09/29/18 16:46 Dose: 200 mg Donepezil HCl (Aricept) 10 mg PO 1600 [facility] Stop: 11/24/18 15:59 Last Admin: 09/29/18 16:46 Dose: 10 mg Furosemide (Lasix) 40 mg PO DAILY [facility] Stop: 11/24/18 08:59 Last Admin: 09/29/18 10:09 Dose: Not Given Haloperidol Decanoate (Haldol Dec) 25 mg IM [id number] [facility]; Protocol Stop: 11/23/18 22:59 Last Admin: 09/25/18 00:13 Dose: Not Given Levothyroxine Sodium (Synthroid) 0.125 mg PO QDAC [facility] Stop: 11/24/18 07:29 Last Admin: 09/30/18 06:40 Dose: 0.125 mg Lorazepam (Ativan) 0.5 mg PO Q4HR PRN; Protocol PRN Reason: Agitation Stop: 10/24/18 22:39 Last Admin: 09/30/18 01:12 Dose: 0.5 mg Magnesium Hydroxide (Milk Of Magnesia) 30 ml PO HS PRN PRN Reason: Constipation Olanzapine (Zyprexa) 5 mg PO HS [facility]; Protocol Stop: 11/24/18 20:59 Last Admin: 09/29/18 20:57 Dose: 5 mg Zolpidem Tartrate (Ambien) 5 mg PO HS PRN PRN Reason: Insomnia Stop: 11/23/18 22:39 Last Admin: 09/29/18 20:58 Dose: 5 mg General: Alert, No acute distress HEENT: Atraumatic, PERRLA, EOMI Neck: Supple Cardiovascular: Regular rate, Normal S1, Normal S2 Lungs: Clear to auscultation Abdomen: Bowel sounds Extremities: no Clubbing, no Cyanosis - Procedures Procedures: Procedures Procedure Code Date AFTER CATARACT LASER SURGERY 31642 03/02/10 AFTER-CATAR DISCISSION 13.64 03/02/10 D & C NEC 69.09 09/12/02 DILATION AND CURETTAGE 56102 09/12/02 GROUP PSYCHOTHERAPY 48687 03/22/15 GROUP PSYCHOTHERAPY [id number] 03/22/15 INFLUENZA VACCINATION 99.52 04/26/13 OTHER GROUP THERAPY 94.44 10/29/14 VACCINATION NEC 99.55 04/26/13 Assessment/Plan - Problem List Patient Problems: All Active Problems AGITATION AND LEG REDNESS (Acute) - Assessment Assessment: Current Active Problems Problem Status Onset AGITATION AND LEG REDNESS Acute psychosis HTN Asthma/COPD DVT/PE Dyslipidemia Dementia Thyroid Disorder OA - Plan Plan: admitted to [facility] Nutritional Asmnt/Malnutr-PDOC - Dietary Evaluation Malnutrition Findings (Please click <Entered> for more info): Nutritional Asmnt/Malnutrition Start: 09/26/18 14: 27 Text: Status: Complete Freq: Protocol: Document 09/26/18 14:27 LCHENG (Rec: 09/26/18 14:53 LCHENG [email or web address]) Nutritional Asmnt/Malnutrition Patient General Information Nutritional Screening Moderate Risk Consult Diagnosis psych eval Pertinent Medical Hx/Surgical Hx HTN, asthma, COPD, dementia, psychosis, hypothyroidism, OA Subjective Information Pt seen sitting on bed, quiet. Consult received for wt loss and pt is vegetarian. Spoke with pt and RN yesterday regarding diet preference. Pt is vegetarian, eat dairy products, likes fruits, milk, yogurt, ice cream, cheese. RN reported pt had wt loss of 8 lb per family. Pt was depressed and admitted here. Possible poor appetite for a while. Per EMR, PO intake 25- 100%. Current Diet Order/ Nutrition Support regular Pertinent Medications lasix, synthroid Pertinent Labs 09/24 Alb 3.5 Nutritional Hx/Data Height 1.63 m Height (Calculated Centimeters) 162.6 Current Weight (lbs) 48.534 kg Weight (Calculated Kilograms) 48.5 Weight (Calculated Grams) 38511.4 Body Mass Index (BMI) 18.3 GI Symptoms GI Symptoms None Last BM none Difficult in: None Skin Integrity/Comment: intact Current %PO Fair (50-74%) Estimated Nutritional Goals Calories/Kcals/Kg 25-30 Kcals Calculated 2444-0375 Protein: Using Current wt Protein g/k Protein Calculated 55 Fluid: ml 1375-1650ml (1ml/kcal) Nutritional Problem No current Nutrition Prob Problem n/A Malnutrition Alert Body Fat Depletion (Non-Severe) Mild Depletion Intervention/Recommendation Comments 1. Continue with regular diet as ordered. Updated diet preference. Add Ensure TID with meals for extra kcal and protein. 2. Monitor PO intake, wt, labs and skin integrity 3. F/U as moderate risk in 3-5 days Expected Outcomes/Goals Expected Outcomes/Goals 1. PO intake to meet at least 75% of nutritional needs. 2. Wt stability, skin to remain intact, labs to approach WNL.
--- NOTE | 2018-10-01 01:44 | Progress Notes ---
DATE: 09/30/2018 SUBJECTIVE: Staff was spoken to. The patient is interviewed. Mood is noted to be irritable. Affect is constricted. Insight and judgment at this time are noted to be still impaired. Impulse control is noted to be poor. Coping skills are also noted to be very poor. No side effects to the medications are noted. ASSESSMENT: The patient is irritable. It is coming down. PLAN: To continue the patient with the supportive therapy and follow. JOB# [id number]
[2018-10-01] MEDS: Levothyroxine 0.125 Mg Tab PO SCH (06:41)
--- NOTE | 2018-10-01 08:07 | General Progress Note ---
Subjective - Review of Systems Service Date: 10/01/18 Subjective: awake alert afebrile VS T98.1 P72 R19 BP 110/68 Objective - Results Result Diagrams: 09/24/18 19:25 09/24/18 19:40 Recent Labs: Laboratory Last Values WBC 5.6 Th/cmm (4.8-10.8) 09/24/18 19:25 RBC 4.63 Mil/cmm (3.80-5.20) 09/24/18 19:25 Hgb 13.5 gm/dL (12-16) 09/24/18 19:25 Hct 41.7 % (41.0-60) 09/24/18 19:25 MCV 89.9 fl (81-100) 09/24/18 19:25 MCH 29.1 pg (27.0-31.0) 09/24/18 19: MCHC Differential 32.4 pg (28.0-36.0) 09/24/18 19:25 RDW 12.9 % (11.5-20.0) 09/24/18:25 Plt Count 111 Th/cmm (150-400) L 09/24/18 19:25 MPV 12.3 fl 09/24/18 19:25 Neutrophils % 67.0 % (40.0-80.0) 09/24/18 19:25 Lymphocytes % 20.2 % (20.0-50.0) 09/24/18 19:25 Monocytes % 10.1 % (2.0-10.0) H 09/24/18: Eosinophils % 1.8 % (0.0-5.0) 09/24/18 19: Basophils % 0.9 % (0.0-2.0) 09/24/18 19:25 Sodium 140 mEq/L (136-145) 09/24/18 19:40 Potassium 3.6 mEq/L (3.5-5.1) 09/24/18:40 Chloride 106 mEq/L (98-107) 09/24/18 19:40 Carbon Dioxide 27.9 mEq/L (21.0-31.0) 09/24/18 19:40 Anion Gap 9.7 (7.0-16.0) 09/24/18 19:40 BUN 15 mg/dL (7-25) 09/24/18 19:40 Creatinine 0.7 mg/dL (0.6-1.2) 09/24/18 19:40 Est GFR ( Amer) TNP 09/24/18 19:40 Est GFR (Non-Af Amer) TNP 09/24/18 19:40 BUN/Creatinine Ratio 21.4 09/24/18 19:40 Glucose 88 mg/dL (70-105) 09/24/18 19:40 Calcium 8.8 mg/dL (8.6-10.3) 09/24/18 19:40 Total Bilirubin 0.4 mg/dL (0.3-1.0) 09/24/18 19:40 AST 13 U/L (13-39) 09/24/18 19:40 ALT 6 U/L (7-52) L 09/24/18 19:40 Alkaline Phosphatase 62 U/L (34-104) 09/24/18 19:40 Troponin I < 0.01 ng/mL (0.01-0.05) L 09/24/18 19:40 Total Protein 5.7 gm/dL (6.0-8.3) L 09/24/18 19:40 Albumin 3.5 gm/dL (3.7-5.3) L 09/24/18 19:40 Globulin 2.2 gm/dL 09/24/18 19:40 Albumin/Globulin Ratio 1.6 (1.0-1.8) 09/24/18 19:40 Triglycerides 53 mg/dL (<150) 09/24/18 19:40 Cholesterol 115 mg/dL (<200) 09/24/18 19:40 LDL Cholesterol Direct 62 mg/dL (75-193) L 09/24/18 19:40 HDL Cholesterol 50 mg/dL (23-92) 09/24/18 19:40 TSH 2.85 uIU/ml (0.34-5.60) 09/24/18 19:40 Salicylates < 25.0 mg/L (30.0-100.0) L 09/24/18 19:40 Acetaminophen < 10.0 ug/mL (10.0-30.0) L 09/24/18 19:40 Ethyl Alcohol < 10 mg/dL (0-10) 09/24/18 19:40 RPR NONREACTIVE (NONREACTIVE) 09/24/18 19:40 - Physical Exam Vitals and I&O: Vital Signs Temp 98.1 F 10/01/18 04:30 Pulse 72 10/01/18 04:30 Resp 19 10/01/18 04:30 BP 110/68 10/01/18 04:30 Pulse Ox 97 10/01/18 04:30 Intake & Output 09/30/18 10/01/18 10/01/18 18:59 06:59 18:59 Intake Total 950 480 Balance 950 480 Intake: Oral 950 480 Other: # Voids 3 2 # Bowel Movements 0 Active Medications: Current Medications Acetaminophen (Tylenol) 650 mg PO Q6H PRN PRN Reason: Mild Pain / Temp above 100 Stop: 11/23/18 22:39 Docusate Sodium (Colace) 200 mg PO BID [facility] Stop: 11/24/18 08:59 Last Admin: 09/30/18 16:44 Dose: 200 mg Donepezil HCl (Aricept) 10 mg PO 1600 [facility] Stop: 11/24/18 15:59 Last Admin: 09/30/18 16:44 Dose: 10 mg Furosemide (Lasix) 40 mg PO DAILY [facility] Stop: 11/24/18 08:59 Last Admin: 09/30/18 08:06 Dose: Not Given Haloperidol Decanoate (Haldol Dec) 25 mg IM [id number] [facility]; Protocol Stop: 11/23/18 22:59 Last Admin: 09/25/18 00:13 Dose: Not Given Levothyroxine Sodium (Synthroid) 0.125 mg PO QDAC [facility] Stop: 11/24/18 07:29 Last Admin: 10/01/18 06:41 Dose: 0.125 mg Lorazepam (Ativan) 0.5 mg PO Q4HR PRN; Protocol PRN Reason: Agitation Stop: 10/24/18 22:39 Last Admin: 09/30/18 01:12 Dose: 0.5 mg Magnesium Hydroxide (Milk Of Magnesia) 30 ml PO HS PRN PRN Reason: Constipation Olanzapine (Zyprexa) 5 mg PO HS [facility]; Protocol Stop: 11/24/18 20:59 Last Admin: 09/30/18 21:33 Dose: 5 mg Zolpidem Tartrate (Ambien) 5 mg PO HS PRN PRN Reason: Insomnia Stop: 11/23/18 22:39 Last Admin: 09/30/18 21:33 Dose: 5 mg General: Alert, No acute distress HEENT: Atraumatic, PERRLA, EOMI Neck: Supple Cardiovascular: Regular rate, Normal S1, Normal S2 Lungs: Clear to auscultation Abdomen: Bowel sounds Extremities: no Clubbing, no Cyanosis - Procedures Procedures: Procedures Procedure Code Date AFTER CATARACT LASER SURGERY 93343 03/02/10 AFTER-CATAR DISCISSION 13.64 03/02/10 D & C NEC 69.09 09/12/02 DILATION AND CURETTAGE 53524 09/12/02 GROUP PSYCHOTHERAPY 41058 03/22/15 GROUP PSYCHOTHERAPY [id number] 03/22/15 INFLUENZA VACCINATION 99.52 04/26/13 OTHER GROUP THERAPY 94.44 10/29/14 VACCINATION NEC 99.55 04/26/13 Assessment/Plan - Problem List Patient Problems: All Active Problems AGITATION AND LEG REDNESS (Acute) - Assessment Assessment: Current Active Problems Problem Status Onset AGITATION AND LEG REDNESS Acute psychosis HTN Asthma/COPD DVT/PE Dyslipidemia Dementia Thyroid Disorder OA - Plan Plan: admitted to [facility] Nutritional Asmnt/Malnutr-PDOC - Dietary Evaluation Malnutrition Findings (Please click <Entered> for more info): Nutritional Asmnt/Malnutrition Start: 09/26/18 14: 27 Text: Status: Complete Freq: Protocol: Document 09/26/18 14:27 LCHENG (Rec: 09/26/18 14:53 LCHENG [email or web address]) Nutritional Asmnt/Malnutrition Patient General Information Nutritional Screening Moderate Risk Consult Diagnosis psych eval Pertinent Medical Hx/Surgical Hx HTN, asthma, COPD, dementia, psychosis, hypothyroidism, OA Subjective Information Pt seen sitting on bed, quiet. Consult received for wt loss and pt is vegetarian. Spoke with pt and RN yesterday regarding diet preference. Pt is vegetarian, eat dairy products, likes fruits, milk, yogurt, ice cream, cheese. RN reported pt had wt loss of 8 lb per family. Pt was depressed and admitted here. Possible poor appetite for a while. Per EMR, PO intake 25- 100%. Current Diet Order/ Nutrition Support regular Pertinent Medications lasix, synthroid Pertinent Labs 09/24 Alb 3.5 Nutritional Hx/Data Height 1.63 m Height (Calculated Centimeters) 162.6 Current Weight (lbs) 48.534 kg Weight (Calculated Kilograms) 48.5 Weight (Calculated Grams) 04056.4 Body Mass Index (BMI) 18.3 GI Symptoms GI Symptoms None Last BM none Difficult in: None Skin Integrity/Comment: intact Current %PO Fair (50-74%) Estimated Nutritional Goals Calories/Kcals/Kg 25-30 Kcals Calculated 1915-7256 Protein: Using Current wt Protein g/k Protein Calculated 55 Fluid: ml 1375-1650ml (1ml/kcal) Nutritional Problem No current Nutrition Prob Problem n/A Malnutrition Alert Body Fat Depletion (Non-Severe) Mild Depletion Intervention/Recommendation Comments 1. Continue with regular diet as ordered. Updated diet preference. Add Ensure TID with meals for extra kcal and protein. 2. Monitor PO intake, wt, labs and skin integrity 3. F/U as moderate risk in 3-5 days Expected Outcomes/Goals Expected Outcomes/Goals 1. PO intake to meet at least 75% of nutritional needs. 2. Wt stability, skin to remain intact, labs to approach WNL.
--- NOTE | 2018-10-01 14:43 | Progress Notes ---
DATE: 09/30/2018 SUBJECTIVE: The patient is seen and is interviewed. Case is discussed with staff. Mood is irritable. The patient continues to be guarded and suspicious. The patient is easily agitated. The patient stated that she is bored and she needs to return to her facility and is demanding discharge. Staff reports the patient was given a dose of Ativan this morning due to increased agitation and anxiety. OBJECTIVE: Mood is irritable and anxious. Affect is constricted. Thought process shows to be confused. The patient denied any hallucinations or delusions. The patient's behavior is still poorly redirectable. ASSESSMENT AND PLAN: The patient's psychosis and impulsivity persist. We provided cognitive and behavioral redirection. We provided remotivation for the patient to stay compliant with her care and treatment and to follow through with staff direction. We provided coping strategies for phase of life issues. We will follow up in 2 days if the patient is still admitted on the unit. JOB# [id number] [facility]
--- NOTE | 2018-10-02 10:46 | Progress Notes ---
DATE: 10/01/2018 SUBJECTIVE: Staff was spoken to. The patient is interviewed. Mood is noted to be anxious. Affect is appropriate. Not suicidal or homicidal. Insight and judgment is somewhat improving. Impulse control is noted fine. Coping skills are noted to be fair. No side effects to the medications are noted. The patient has been able to verbalize the concerns rather than to act out. ASSESSMENT: The patient is stabilizing. PLAN: To continue current medications and discharge the patient back to [facility] to be followed up by Dr. Monroe. [facility]# [id number]
== END 2018-10-01 16:45 | DRG 885 ==
LOC: ER 17:12 → GERO2 21:11
DX: F20.0 Paranoid schizophrenia (principal); L03.115 Cellulitis of right lower limb; F03.91 Unspecified dementia, unspecified severity, with behavioral disturbance; I10 Essential (primary) hypertension; J44.9 Chronic obstructive pulmonary disease, unspecified; E78.5 Hyperlipidemia, unspecified; M19.90 Unspecified osteoarthritis, unspecified site
CPT/HCPCS: 36415-UA; 80053-TC; 80061-TC; 80320-TC; 80329-TC; 83036-90; 84443-TC; 84484-TC; 85025-TC; 86592-TC; 93005; G0410; J0696; J1200; J1630; J2060; J7051; Z7610